=== PATIENT | male | born 1960 | race Caucasian/White ===

== ENCOUNTER 2017-09-22 06:59 | Inpatient (IN) | payer BC, OTHER ==
--- NOTE | 2017-09-22 06:42 | PCM.PREANE ---
Preanesthetic Assessment - Anesthesia/Transfusion/Family Hx Anesthesia History: Prior Anesthesia Without Reaction Family History of Anesthesia Reaction: No Transfusion History: No Prior Transfusion(s) Intubation History: Unknown - Review of Systems General: No Symptoms Pulmonary: No Symptoms (History JD with refusal of use of CPAP) Cardiovascular: No Symptoms (HTN) Gastrointestinal: No Symptoms Neurological: No Symptoms (History of gout/History of malignant neoplasm of prostate 2009), Tingling (bilaterl feet at times) Other: Reports: None (history of kidney stones), Diabetes (AM blood sugar= 136 at 0732) - Physical Assessment NPO Status Date: 09/21/17 NPO Status Time: 21:00 Pulse: 76 O2 Sat by Pulse Oximetry: 94 Respiratory Rate: 16 Blood Pressure: 141/86 Temperature: 36.4 C Height: 1.88 m Weight: 119 kg ASA Class: 2 Mental Status: Alert & Oriented x3 Airway Class: Mallampati = 2 Dentition: Reports: Normal Dentition, Caries Thyro-Mental Finger Breadths: 3 Mouth Opening Finger Breadths: 3 ROM/Head Extension: Full Lungs: Clear to Auscultation, Normal Respiratory Effort Cardiovascular: Regular Rate, Regular Rhythm, No Murmurs - Lab Values: Laboratory Last Values MRSA (PCR) Negative 09/16/17 12:50 all labs reviewed and noted and within acceptable ranges to proceed with scheduled procedure. - Imaging/EKG Impressions: EKG: SR borderline low voltage extremity leads rate=85 CXR: Scarring in both lungs, focal nodular changes in the right midlung - Allergies Allergies/Adverse Reactions: Allergies Allergy/AdvReac Type Severity Reaction Status Date / Time Fkzrpke-Qry-Gvm Reductase AdvReac Muscle Verified 09/22/17 07:05 Inhibitor Aches - Anesthesia Plan Pre-Op Medication Ordered: None - Acknowledgements Anesthesia Type Planned: Spinal Pt an Appropriate Candidate for the Planned Anesthesia: Yes Alternatives and Risks of Anesthesia Discussed w Pt/Guardian: Yes Pt/Guardian Understands and Agrees with Anesthesia Plan: Yes PreAnesthesia Questionnaire HEENT History: Reports: Impaired Vision Cardiovascular History: Reports: High Cholesterol, Hypertension Respiratory History: Reports: Sleep Apnea Genitourinary History: Reports: Renal Calculus 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 Musculoskeletal History: Reports: Gout, Osteoarthritis Neurological History: Reports: None Psychiatric History: Reports: None Endocrine/Metabolic History: Reports: Diabetes, Type II Hematologic History: Reports: None Immunologic History: Reports: None Oncologic (Cancer) History: Reports: Prostate Dermatologic History: Reports: None - Past Surgical History Head Surgeries/Procedures: Reports: None HEENT Surgical History: Reports: Adenoidectomy, Tonsillectomy Cardiovascular Surgical History: Reports: None Respiratory Surgical History: Reports: None GI Surgical History: Reports: Bariatric Procedure, Colonoscopy Female Surgical History: Male Surgical History: Reports: Cystectomy, Lithotripsy (ESWL), Prostate Biopsy, Prostatectomy Endocrine Surgical History: Reports: None Neurological Surgical History: Reports: None Musculoskeletal Surgical History: Reports: Carpal Tunnel Oncologic Surgical History: Reports: None Dermatological Surgical History: Reports: None - SUBSTANCE USE Smoking Status *Q: Former Smoker Second Hand Smoke Exposure: No Recreational Drug Use History: No - HOME MEDS Home Medications: Home Meds Acetaminophen [Tylenol Extra Strength] 1 - 2 tab PO Q6H PRN 09/19/17 [History] Allopurinol [Zyloprim] 300 mg PO DAILY 09/19/17 [History] Aspirin [Adult Aspirin] 81 mg PO DAILY 09/19/17 [History] Lisinopril 20 mg PO DAILY 09/19/17 [History] Loratadine [Claritin] 10 mg PO DAILY PRN 09/19/17 [History] Multivit-Min/FA/Lycopen/Lutein [Centrum Silver Men Tablet] 1 tab PO DAILY [History] SitaGLIPtin [Januvia] 100 mg PO DAILY 09/19/17 [History] Tadalafil [Cialis] 5 mg PO ASDIRECTED PRN 09/19/17 [History] Terbinafine [LamISIL] 250 mg PO DAILY 09/19/17 [History] Zolpidem Tartrate [Ambien] 10 mg PO BEDTIME PRN 09/19/17 [History] amLODIPine Besylate [Amlodipine Besylate] 10 mg PO DAILY 09/19/17 [History] metFORMIN HCl [Metformin HCl] 2,000 mg PO BID 09/19/17 [History] - CURRENT (IN HOUSE) MEDS Current Meds: Current Medications Acetaminophen (Tylenol) 975 mg PO ONETIME JHONATHAN Lactated Ringer's (Ringers, Lactated) 1,000 mls @ 125 mls/hr IV ASDIRECTED JHONATHAN Lidocaine/Sodium Bicarbonate (Buffered Lidocaine 1% In Ns 8.4%) 0.25 ml IDERM ONETIME PRN PRN Reason: Prior to IV Start Oxycodone HCl (Oxycontin) 10 mg PO ONETIME JHONATHAN Pregabalin (Lyrica) 50 mg PO ONETIME JHONATHAN Sodium Chloride (Saline Flush) 10 ml FLUSH ASDIRECTED PRN PRN Reason: Keep Vein Open
[~2017-09-22 06:59] MED LIST: Acetaminophen 325 MG Tab PO SCH; Lidocaine 1%/Sod Bicarbonate in NS 8.4% 1 ML Syringe IDERM PRN; Pregabalin 25 MG Cap PO SCH; Sodium Chloride 0.9% 10 ML Syringe FLUSH PRN; oxyCODONE ER 10 MG TAB.ER PO SCH
[2017-09-22] MEDS ORDERED: Ondansetron 4 MG/2 ML SDV ONE (07:16)
[2017-09-22] MEDS ORDERED: ceFAZolin 1 GM Vial ONE ×2 (07:16→07:17)
[2017-09-22] MEDS ORDERED: Phenylephrine/Normal Saline 100 MCG/ML 10 ML Syringe ONE (07:16)
[2017-09-22] MEDS ORDERED: Lactated Ringers 1,000 ML ONE ×2 (07:16→08:36)
[2017-09-22] MEDS ORDERED: Vancomycin 1 GM SDV ONE (07:17)
[2017-09-22] MEDS ORDERED: Iodine/Sodium Iodide 2% Tincture 30 ML Bottle ONE (07:17)
[2017-09-22] MEDS ORDERED: Bupivacaine 0.25% 30 ML SDV ONE (07:17)
[2017-09-22] MEDS ORDERED: Propofol 200 MG/20 ML SDV ONE ×2 (07:17→09:52)
[2017-09-22] MEDS ORDERED: fentaNYL 100 MCG/2 ML SDV ONE (07:17)
[2017-09-22] MEDS ORDERED: Ketamine 500 mg/10 ML MDV ONE (07:18)
[2017-09-22] MEDS: Lactated Ringers 1,000 ML IV SCH ×2 (07:35→14:40)
[2017-09-22] MEDS ORDERED: Bupivacaine 0.75% 30 ML SDV ONE ×2 (08:11→09:01)
[2017-09-22] MEDS ORDERED: Bupivacaine 0.75%/D5W 2 ML Amp ONE (08:22)
[2017-09-22] MEDS ORDERED: Acetaminophen 325 MG Tab PO PRN (08:43)
[2017-09-22] MEDS ORDERED: TADALAFIL 5 MG PO PRN (08:43)
[2017-09-22] MEDS ORDERED: Ondansetron 4 MG/2 ML SDV IVPUSH PRN (08:54)
[2017-09-22] MEDS ORDERED: ePHEDrine 50 MG/ML SDV IVPUSH PRN (08:54)
[2017-09-22] MEDS ORDERED: diphenhydrAMINE 50 MG/ML SDV IVPUSH PRN (08:54)
[2017-09-22] MEDS ORDERED: fentaNYL 100 MCG/2 ML SDV IVPUSH PRN (08:54)
[2017-09-22] MEDS ORDERED: HYDROmorphone 0.5 MG/0.5 ML Syringe IVPUSH PRN (08:55)
[2017-09-22] MEDS ORDERED: Non-Formulary Medication 1 Each (Sitagliptin 100 MG) PO SCH (09:00)
[2017-09-22] MEDS ORDERED: Phenylephrine 1 MG in Sodium Chloride 0.9% 10 ML IV SCH (09:00)
[2017-09-22] MEDS ORDERED: HYDROmorphone 0.5 MG/0.5 ML Syringe ONE ×3 (09:57→10:26)
--- NOTE | 2017-09-22 09:59 | PCM.CONS ---
H&P History of Present Illness - General Date of Service: 09/22/17 Admit Problem/Dx: Admission Diagnosis/Problem Admission Diagnosis/Problem Osteoarthritis of hip Source of Information: Patient, Old Records, Provider, RN, RN Notes Reviewed History Limitations: Reports: No Limitations - History of Present Illness Initial Comments - Free Text/Narative: Jac Bhatt is a 56 yo male patient of Dr. Darnell who is post-operative day 0 of right MEGAN. Hospital medicine was consulted for post-operative medical care. At this time he is resting comfortably in bed. He reports he is very sleepy and fatigued. Pain is controlled and 0/10. He denies any chest pain, shortness of breath, palpitations, or vomiting. He has been very mildly nauseated but it is improving. He carries a history of: JD but refueses CPAP, HTN, HLD, Gout, Prostate cancer, Renal Calculus, Osteoarthritis, Type II DM, and a history of lap band procedure. He is a former smoker. He is a full code. His primary care provider is Dr. Ac. - Related Data Allergies/Adverse Reactions: Allergies Allergy/AdvReac Type Severity Reaction Status Date / Time Pykvciv-Teo-Srp Reductase AdvReac Muscle Verified 09/22/17 07:05 Inhibitor Aches Home Medications: Home Meds Allopurinol [Zyloprim] 300 mg PO DAILY 09/19/17 [History] Aspirin [Adult Aspirin] 81 mg PO DAILY 09/19/17 [History] Lisinopril 20 mg PO DAILY 09/19/17 [History] Loratadine [Claritin] 10 mg PO DAILY PRN 09/19/17 [History] Multivit-Min/FA/Lycopen/Lutein [Centrum Silver Men Tablet] 1 tab PO DAILY [History] Tadalafil [Cialis] 5 mg PO ASDIRECTED PRN 09/19/17 [History] Terbinafine [LamISIL] 250 mg PO DAILY 09/19/17 [History] Zolpidem Tartrate [Ambien] 10 mg PO BEDTIME PRN 09/19/17 [History] amLODIPine Besylate [Amlodipine Besylate] 10 mg PO DAILY 09/19/17 [History] metFORMIN HCl [Metformin HCl] 2,000 mg PO BID 09/19/17 [History] Acetaminophen [Tylenol Extra Strength] 1 - 2 tab PO Q6H PRN #0 09/22/17 [Rx] Acetaminophen/oxyCODONE [Percocet 325-5 MG] 1 - 2 tab PO Q6H PRN #60 tablet 05/11 [Rx] Bisacodyl [Dulcolax] 5 mg PO DAILY PRN tablet 09/22/17 [Rx] Docusate Sodium [Colace] 100 mg PO BID cap 09/22/17 [Rx] Famotidine [Pepcid] 20 mg PO Q12H tablet 09/22/17 [Rx] Magnesium Hydroxide [Milk of Magnesia] 30 ml PO BID PRN cup 09/22/17 [Rx] Rivaroxaban [Xarelto] 10 mg PO DAILY #40 tablet 09/22/17 [Rx] Sennosides [Senna] 8.6 mg PO BID PRN tablet 09/22/17 [Rx] Past Medical History HEENT History: Reports: Impaired Vision Cardiovascular History: Reports: High Cholesterol, Hypertension Respiratory History: Reports: Sleep Apnea Genitourinary History: Reports: Renal Calculus 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 Musculoskeletal History: Reports: Gout, Osteoarthritis Neurological History: Reports: None Psychiatric History: Reports: None Endocrine/Metabolic History: Reports: Diabetes, Type II Hematologic History: Reports: None Immunologic History: Reports: None Oncologic (Cancer) History: Reports: Prostate Dermatologic History: Reports: None - Past Surgical History Head Surgeries/Procedures: Reports: None HEENT Surgical History: Reports: Adenoidectomy, Tonsillectomy Cardiovascular Surgical History: Reports: None Respiratory Surgical History: Reports: None GI Surgical History: Reports: Bariatric Procedure, Colonoscopy Female Surgical History: Male Surgical History: Reports: Cystectomy, Lithotripsy (ESWL), Prostate Biopsy, Prostatectomy Endocrine Surgical History: Reports: None Neurological Surgical History: Reports: None Musculoskeletal Surgical History: Reports: Carpal Tunnel Oncologic Surgical History: Reports: None Dermatological Surgical History: Reports: None Social & Family History - Tobacco Use Smoking Status *Q: Former Smoker Used Tobacco, but Quit: Yes Month/Year Tobacco Last Used: 1983 Second Hand Smoke Exposure: No - Caffeine Use Caffeine Use: Reports: Soda - Recreational Drug Use Recreational Drug Use: No H&P Review of Systems - Review of Systems: Review Of Systems: See Below General: Reports: Fatigue. Denies: Fever, Chills, Malaise, Weakness HEENT: Reports: No Symptoms Pulmonary: Reports: No Symptoms Cardiovascular: Reports: No Symptoms Gastrointestinal: Reports: Nausea (improving to resolved ). Denies: Abdominal Pain, Constipation, Diarrhea, Decreased Appetite, Vomiting Genitourinary: Reports: No Symptoms Musculoskeletal: Reports: Leg Pain Skin: Reports: No Symptoms Psychiatric: Reports: No Symptoms Neurological: Reports: No Symptoms Hematologic/Lymphatic: Reports: No Symptoms Immunologic: Reports: No Symptoms Exam - Exam Exam: See Below - Vital Signs Vital Signs: Last Vital Signs Temp 97.5 F 09/22/17 07:47 Pulse 76 09/22/17 07:47 Resp 16 09/22/17 07:47 BP 141/86 H 09/22/17 07:47 Pulse Ox 94 L 09/22/17 07:47 Weight: 262 lb 5.601 oz - Exam Quality Assessment: Urinary Catheter, DVT Prophylaxis General: Alert, Oriented, Cooperative. No: Mild Distress HEENT: Conjunctiva Clear, EACs Clear, EOMI, Hearing Intact, Mucosa Moist & Andres , Normal Nasal Septum, PERRLA Neck: Supple, Trachea Midline Lungs: Clear to Auscultation, Normal Respiratory Effort Cardiovascular: Regular Rate, Regular Rhythm GI/Abdominal Exam: Normal Bowel Sounds, Soft, Non-Tender, No Distention (Male) Exam: Deferred Rectal (Males) Exam: Deferred Back Exam: Normal Inspection, Full Range of Motion Extremities: No Pedal Edema, Normal Capillary Refill, Leg Pain, Limited Range of Motion, Other (GWEN bandage on right leg. Cooling pack in place ) Peripheral Pulses: 2+: Radial (L), Radial (R), Posterior Tibial (L), Posterior Tibial (R), Dorsalis Pedis (L), Dorsalis Pedis (R) Skin: Warm, Dry, Intact Neurological: Cranial Nerves Intact (grossly ) Neuro Extensive - Mental Status: Alert, Oriented x3, Normal Mood/Affect, Normal Cognition, Memory Intact Psychiatric: Alert, Normal Affect, Normal Mood - Patient Data Lab Results Last 24 hrs: Laboratory Results - last 24 hr 09/22/17 09/22/17 Range/Units 07:30 07:33 POC Glucose 136 H (70-105) mg/dL Blood Type O POSITIVE Gel Antibody Screen Negative Consult PN Assessment/Plan POD#: 0 (1) S/P total hip arthroplasty SNOMED Code(s): 669671915473, 863712302412 Code(s): Z96.649 - PRESENCE OF UNSPECIFIED ARTIFICIAL HIP JOINT Priority: High Current Visit: Yes Qualifiers: Laterality: right Qualified Code(s): Z96.641 - Presence of right artificial hip joint (2) Osteoarthritis SNOMED Code(s): 866257051 Code(s): M19.90 - UNSPECIFIED OSTEOARTHRITIS, UNSPECIFIED SITE Priority: High Current Visit: Yes Qualifiers: Osteoarthritis location: hip Osteoarthritis type: primary Laterality: right Qualified Code(s): M16.11 - Unilateral primary osteoarthritis, right hip (3) Type II diabetes mellitus SNOMED Code(s): 61833760 Code(s): E11.9 - TYPE 2 DIABETES MELLITUS WITHOUT COMPLICATIONS Priority: Medium Current Visit: Yes Qualifiers: 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: without halfway use Diabetes mellitus complication status: with unspecified complications Qualified Code(s) : E11.8 - Type 2 diabetes mellitus with unspecified complications (4) HTN (hypertension) SNOMED Code(s): 23364506 Code(s): I10 - ESSENTIAL (PRIMARY) HYPERTENSION Priority: Medium Current Visit: No Qualifiers: Hypertension type: unspecified Qualified Code(s): I10 - Essential (primary ) hypertension (5) HLD (hyperlipidemia) SNOMED Code(s): 31506315 Code(s): E78.5 - HYPERLIPIDEMIA, UNSPECIFIED Priority: Medium Current Visit: No Qualifiers: Hyperlipidemia type: unspecified Qualified Code(s): E78.5 - Hyperlipidemia , unspecified (6) Prostate cancer SNOMED Code(s): 639006890 Code(s): C61 - MALIGNANT NEOPLASM OF PROSTATE Priority: Medium Current Visit: No (7) History of bariatric surgery SNOMED Code(s): 221770784, 628120237 Code(s): Z98.84 - BARIATRIC SURGERY STATUS Priority: Medium Current Visit : No Problem List Initiated/Reviewed/Updated: Yes Plan: I/P: Acute: S/P right total hip arthroplasty - post-operative day 0 -DVT prophylaxis and pain management per primary care team -PT/OT -IS/RT -Monitor oxygen saturation -Titrate oxygen as needed -Vital signs stable -Monitor labs -Pre-operative Hgb was 14.3 -Pre-operative eGFR was >90 -A1C was 6.4 Osteoarthritis of right hip -Pain management per primary care team Chronic: JD but refueses CPAP HTN HLD Hx/o Gout Prostate cancer Renal Calculus Type II DM -QID AC and bedtime glucose checks, SS insulin if needed History of lap band procedure Plan: CM for discharge planning GI prophylaxis Home medications as indicated Other orders as listed above Routine AM labs He is a full code. His PCP is Dr. Ac Thank you for allowing us to participate in the care of this patient!! Requesting Provider: Dr. Darnell Date Consult Requested: 09/22/17 Reason for Consult: Post-operative medical care Patient History Reviewed: Yes Admission H&P Reviewed: Yes Time Spent (in minutes): 40
[2017-09-22] MEDS ORDERED: Naloxone 0.4 MG/ML SDV IVPUSH PRN (10:00)
[2017-09-22] MEDS ORDERED: Acetaminophen/oxyCODONE 325-5 MG Tab PO PRN (10:00)
[2017-09-22] MEDS ORDERED: Magnesium Hydroxide 400 MG/5 ML Susp 30 ML Cup PO PRN (10:00)
[2017-09-22] MEDS ORDERED: Morphine 2 MG/ML Syringe IVPUSH PRN (10:00)
[2017-09-22] MEDS ORDERED: Sennosides 8.6 MG Tab PO PRN (10:00)
[2017-09-22] MEDS ORDERED: Bisacodyl 5 MG Tab PO PRN (10:00)
[2017-09-22] MEDS: Morphine 8 MG, EPINEPHrine 0.3 MG, Cefuroxime 750 MG, Ketorolac 30 MG, Sodium Chloride ... ONE ×10 (10:18→21:36)
[2017-09-22] MEDS ORDERED: Ketorolac 30 MG/ML SDV ONE (10:22)
--- NOTE | 2017-09-22 10:50 | PCM.POSTAN ---
POST ANESTHESIA ASSESSMENT - MENTAL STATUS Mental Status: Alert - VITAL SIGNS Pulse Rate: 60 SaO2: 94 Resp Rate: 10 Blood Pressure: 103/68 Temperature: 36.6 C - RESPIRATORY Respiratory Status: Respiratory Rate WNL, Airway Patent, O2 Saturation Stable, Supplemental Oxygen - CARDIOVASCULAR CV Status: Pulse Rate WNL, Blood Pressure Stable - GASTROINTESTINAL GI Status: No Symptoms - POST OP HYDRATION Hydration Status: Adequate & Stable
--- NOTE | 2017-09-22 11:39 | CR ---
Pelvis and right hip: AP view of the pelvis was obtained as well as lateral view of the right hip. Recently placed right hip prosthesis is seen. Components are aligned. Small amount of soft tissue air is noted around the right hip. Joint space with the left hip is preserved. Sacroiliac joints are within normal limits. Impression: 1. Satisfactory radiographic appearance of recently placed right hip prosthesis. Diagnostic code #2
[2017-09-22] MEDS: Multivitamins,Therapeutic Tab PO SCH (12:47)
[2017-09-22] MEDS: Lisinopril 20 MG Tab PO SCH (12:47)
[2017-09-22] MEDS: TERBINAFINE 250 MG PO SCH (12:48)
[2017-09-22] MEDS: Ondansetron 4 MG/2 ML SDV IVPUSH PRN ×2 (13:03→20:29)
[2017-09-22] MEDS ORDERED: 50% Dextrose in Water 50 ML Syringe IVPUSH PRN (13:24)
[2017-09-22] MEDS: metFORMIN 500 MG Tab PO SCH (16:59)
[2017-09-22] MEDS: ceFAZolin 2 GM in Premix Bag 1 BAG IV SCH (16:59)
[2017-09-22] MEDS: Insulin Aspart 100 Units/ML 3 ML Pen SUBCUT SCH ×2 (17:09→22:08)
[2017-09-22] MEDS ORDERED: Zolpidem 10 MG Tab PO PRN (21:00)
[2017-09-22] MEDS: Docusate Sodium 100 MG Cap PO SCH (21:25)
[2017-09-22] MEDS: Famotidine 20 MG Tab PO SCH (21:25)
[2017-09-22] MEDS: Cyclobenzaprine 10 MG Tab PO PRN (21:26)
[2017-09-22] MEDS: Ketorolac 15 MG/ML SDV IVPUSH PRN (21:31)
[2017-09-23] MEDS: ceFAZolin 2 GM in Premix Bag 1 BAG IV SCH ×2 (00:33→08:55)
[2017-09-23] MEDS: Ketorolac 15 MG/ML SDV IVPUSH PRN (04:14)
[2017-09-23] MEDS: Cyclobenzaprine 10 MG Tab PO PRN ×2 (04:18→11:25)
--- NOTE | 2017-09-23 06:33 | PCM.CONSN ---
- General Info Date of Service: 09/23/17 Admission Dx/Problem (Free Text): Admission Diagnosis/Problem Admission Diagnosis/Problem Osteoarthritis of hip Subjective Update: In to see Jcarlos. He is sitting up in the chair and nursing is in his room. He has no complaints or concerns. He reports he has not needed anything for pain since yesterday. Pain is controlled. Functional Status: Reports: Pain Controlled, Tolerating Diet, Ambulating, Urinating, Incentive Spirometry. Denies: New Symptoms - Review of Systems General: Reports: No Symptoms HEENT: Reports: No Symptoms Pulmonary: Reports: No Symptoms Cardiovascular: Reports: No Symptoms Gastrointestinal: Reports: No Symptoms Genitourinary: Reports: No Symptoms Musculoskeletal: Reports: Leg Pain Skin: Reports: No Symptoms Neurological: Reports: No Symptoms Psychiatric: Reports: No Symptoms - Patient Data Vitals - Most Recent: Last Vital Signs Temp 99.1 F 09/23/17 04:09 Pulse 88 09/23/17 04:09 Resp 16 09/23/17 04:09 BP 135/78 09/23/17 04:09 Pulse Ox 94 L 09/23/17 04:09 Weight - Most Recent: 271 lb 2 oz I&O - Last 24 Hours: Intake & Output 09/22/17 09/22/17 09/23/17 14:59 22:59 06:59 Intake Total 100 1432 1450 Output Total 50 750 Balance 100 1382 700 Lab Results Last 24 Hours: Laboratory Results - last 24 hr 09/22/17 09/22/17 09/22/17 Range/Units 07:30 07:33 10:54 Hgb (13.7-17.5) gm/L Hct (40.1-51.0) % POC Glucose 136 H 141 H (70-105) mg/dL Blood Type O POSITIVE Gel Antibody Screen Negative 09/22/17 09/22/17 09/22/17 Range/Units 15:25 16:57 21:59 Hgb 13.1 L (13.7-17.5) gm/L Hct 39.3 L (40.1-51.0) % POC Glucose 252 H 225 H (70-105) mg/dL Blood Type Gel Antibody Screen Med Orders - Current: Current Medications Acetaminophen (Tylenol) 650 - 975 mg PO Q6H PRN PRN Reason: Pain Allopurinol (Zyloprim) 300 mg PO DAILY [facility] Amlodipine Besylate (Norvasc) 10 mg PO DAILY [facility] Aspirin (Halfprin) 81 mg PO DAILY [facility] Bisacodyl (Dulcolax) 5 mg PO DAILY PRN PRN Reason: Constipation Cyclobenzaprine HCl (Flexeril) 10 mg PO TID PRN PRN Reason: Spasms Last Admin: 09/23/17 04:18 Dose: 10 mg Dextrose/Water (Dextrose 50% In Water) 50 ml IVPUSH ASDIRECTED PRN PRN Reason: Hypoglycemia Docusate Sodium (Colace) 100 mg PO BID [facility] Last Admin: 09/22/17 21:25 Dose: 100 mg Famotidine (Pepcid) 20 mg PO Q12H [facility] Last Admin: 09/22/17 21:25 Dose: 20 mg Cefazolin Sodium/Dextrose 2 gm (/ Premix) 50 mls @ 100 mls/hr IV Q8H [facility] Stop: 09/23/17 09:29 Last Admin: 09/23/17 00:33 Dose: 100 mls/hr Insulin Aspart (Novolog) 0 unit SUBCUT QIDACANDBED [facility]; Protocol Last Admin: 09/22/17 22:08 Dose: 2 units Ketorolac Tromethamine (Toradol) 15 mg IVPUSH Q6H PRN PRN Reason: Pain Last Admin: 09/23/17 04:14 Dose: 15 mg Lisinopril (Prinivil) 20 mg PO DAILY [facility] Last Admin: 09/22/17 12:47 Dose: 20 mg Loratadine (Claritin) 10 mg PO DAILY PRN PRN Reason: Allergies Magnesium Hydroxide (Milk Of Magnesia) 30 ml PO BID PRN PRN Reason: Constipation Metformin HCl (Glucophage) 2,000 mg PO BIDMEALS [facility] Last Admin: 09/22/17 16:59 Dose: Not Given Morphine Sulfate (Morphine) 2 mg IVPUSH Q2H PRN PRN Reason: Breakthrough Pain Multivitamins (Thera) 1 each PO DAILY [facility] Last Admin: 09/22/17 12:47 Dose: 1 each Naloxone HCl (Narcan) 0.1 mg IVPUSH Q5M PRN PRN Reason: Oversedation Ondansetron HCl (Zofran) 4 mg IVPUSH Q6H PRN PRN Reason: Nausea/Vomiting Last Admin: 09/22/17 20:29 Dose: 4 mg Oxycodone/Acetaminophen (Percocet 325-5 Mg) 1 - 2 tab PO Q4H PRN PRN Reason: Pain Last Admin: 09/22/17 17:10 Dose: 2 tab Terbinafine 250 Mg 0 each PO DAILY [facility] Last Admin: 09/22/17 12:48 Dose: Not Given Rivaroxaban (Xarelto) 10 mg PO DAILY [facility] Senna (Senna) 8.6 mg PO BID PRN PRN Reason: Constipation Zolpidem Tartrate (Ambien) 10 mg PO BEDTIME PRN PRN Reason: Insomnia Discontinued Medications Acetaminophen (Tylenol) 975 mg PO ONETIME [facility] Stop: 09/22/17 12:00 Bupivacaine HCl (Marcaine 0.25%) Confirm Administered Dose 30 ml .ROUTE .STK- MED ONE Stop: 09/22/17 07:18 Last Admin: 09/22/17 10:19 Dose: 30 ml Bupivacaine HCl (Sensorcaine-Mpf 0.75%) Confirm Administered Dose 30 ml .ROUTE .STK-MED ONE Stop: 09/22/17 08:12 Bupivacaine HCl (Sensorcaine-Mpf 0.75%) Confirm Administered Dose 30 ml .ROUTE .STK-MED ONE Stop: 09/22/17 09:02 Bupivacaine HCl/Dextrose (Marcaine 0.75% Spinal) Confirm Administered Dose 2 ml .ROUTE .STK-MED ONE Stop: 09/22/17 08:23 Cefazolin Sodium (Ancef) Confirm Administered Dose 3 gm .ROUTE .STK-MED ONE Stop: 09/22/17 07:17 Cefazolin Sodium (Ancef) Confirm Administered Dose 2 gm .ROUTE .STK-MED ONE Stop: 09/22/17 07:18 Last Admin: 09/22/17 10:13 Dose: 2 gm Morphine Sulfate 8 mg/Epinephrine HCl 0.3 mg/Cefuroxime Sodium 750 mg/Ketorolac Tromethamine 30 mg/Sodium Chloride 27.9 ml 0 mg .XX ONETIME ONE Stop: 09/22/17 09:01 Last Admin: 09/22/17 21:36 Dose: Not Given Diphenhydramine HCl (Benadryl) 25 mg IVPUSH Q6H PRN PRN Reason: pruritis Stop: 09/22/17 12:00 Ephedrine Sulfate (Ephedrine Sulfate) 5 mg IVPUSH ASDIRECTED PRN PRN Reason: Hypotension Stop: 09/22/17 12:00 Fentanyl (Sublimaze) Confirm Administered Dose 100 mcg .ROUTE .STK-MED ONE Stop: 09/22/17 07:18 Fentanyl (Sublimaze) 50 mcg IVPUSH Q5M PRN PRN Reason: Pain Stop: 09/22/17 12:00 Hydromorphone HCl (Dilaudid) 0.5 mg IVPUSH ONETIME PRN PRN Reason: Pain Stop: 09/22/17 12:00 Hydromorphone HCl (Dilaudid) Confirm Administered Dose 0.5 mg .ROUTE .STK-MED ONE Stop: 09/22/17 09:58 Hydromorphone HCl (Dilaudid) Confirm Administered Dose 0.5 mg .ROUTE .STK-MED ONE Stop: 09/22/17 10:13 Hydromorphone HCl (Dilaudid) Confirm Administered Dose 0.5 mg .ROUTE .STK-MED ONE Stop: 09/22/17 10:27 Lactated Ringer's (Ringers, Lactated) 1,000 mls @ 125 mls/hr IV ASDIRECTED [facility] Stop: 09/22/17 23:00 Last Admin: 09/22/17 14:40 Dose: 125 mls/hr Lidocaine HCl (Xylocaine-Mpf 1%) Confirm Administered Dose 10 mls @ as directed .ROUTE .STK-MED ONE Stop: 09/22/17 07:17 Lactated Ringer's (Ringers, Lactated) Confirm Administered Dose 1,000 mls @ as directed .ROUTE .STK-MED ONE Stop: 09/22/17 07:17 Lactated Ringer's (Ringers, Lactated) Confirm Administered Dose 1,000 mls @ as directed .ROUTE .STK-MED ONE Stop: 09/22/17 08:37 Phenylephrine HCl 1 mg/ Sodium (Chloride) 10.1 mls @ 1 mls/sec IV TITRATE [facility]; Protocol Stop: 09/22/17 12:00 Iodine (Iodine 2% Mild Tincture) Confirm Administered Dose 30 ml .ROUTE .STK- MED ONE Stop: 09/22/17 07:18 Last Admin: 09/22/17 10:11 Dose: 18 ml Ketamine HCl (Ketalar) Confirm Administered Dose 500 mg .ROUTE .STK-MED ONE Stop: 09/22/17 07:19 Ketorolac Tromethamine (Toradol) Confirm Administered Dose 30 mg .ROUTE .STK- MED ONE Stop: 09/22/17 10:23 Lidocaine/Sodium Bicarbonate (Buffered Lidocaine 1% In Ns 8.4%) 0.25 ml IDERM ONETIME PRN PRN Reason: Prior to IV Start Stop: 09/22/17 18:00 Last Admin: 09/22/17 07:29 Dose: 0.25 ml Non-Formulary Medication (Sitagliptin) 100 mg PO DAILY [facility] Last Admin: 09/22/17 21:37 Dose: Not Given Non-Formulary Medication (Tadalafil [Cialis]) 5 mg PO ASDIRECTED PRN PRN Reason: as directed Ondansetron HCl (Zofran) Confirm Administered Dose 4 mg .ROUTE .STK-MED ONE Stop: 09/22/17 07:17 Ondansetron HCl (Zofran) 4 mg IVPUSH ONETIME PRN PRN Reason: Nausea/Vomiting Stop: 09/22/17 12:00 Oxycodone HCl (Oxycontin) 10 mg PO ONETIME [facility] Stop: 09/22/17 12:00 Phenylephrine HCl (Phenylephrine In Ns 100 Mcg/Ml) Confirm Administered Dose 1 mg .ROUTE .STK-MED ONE Stop: 09/22/17 07:17 Pregabalin (Lyrica) 50 mg PO ONETIME [facility] Stop: 09/22/17 12:00 Propofol (Diprivan 20 Ml) Confirm Administered Dose 400 mg .ROUTE .STK-MED ONE Stop: 09/22/17 07:18 Propofol (Diprivan 20 Ml) Confirm Administered Dose 200 mg .ROUTE .STK-MED ONE Stop: 09/22/17 09:53 Sodium Chloride (Saline Flush) 10 ml FLUSH ASDIRECTED PRN PRN Reason: Keep Vein Open Stop: 09/22/17 18:00 Tranexamic Acid (Cyklokapron) Confirm Administered Dose 1,000 mg .ROUTE .STK- MED ONE Stop: 09/22/17 07:18 Last Admin: 09/22/17 10:20 Dose: 1,000 mg Vancomycin HCl (Vancomycin) Confirm Administered Dose 1 gm .ROUTE .STK-MED ONE Stop: 09/22/17 07:18 Last Admin: 09/22/17 10:20 Dose: 1 gm - Exam Quality Assessment: DVT Prophylaxis General: Alert, Oriented, Cooperative, No Acute Distress HEENT: Pupils Equal, Pupils Reactive, EOMI, Mucous Membr. Moist/[place] Neck: Supple, Trachea Midline, No JVD Lungs: Clear to Auscultation, Normal Respiratory Effort Cardiovascular: Regular Rate, Regular Rhythm GI/Abdominal Exam: Normal Bowel Sounds, Soft, Non-Tender, No Distention (Male) Exam: Deferred Back Exam: Normal Inspection, Full Range of Motion Extremities: No Pedal Edema, Normal Capillary Refill, Leg Pain, Limited Range of Motion, Other (GWEN bandage on right leg. Cooling pack in place. ) Peripheral Pulses: 2+: Radial (L), Radial (R), Posterior Tibial (L), Posterior Tibial (R), Dorsalis Pedis (L), Dorsalis Pedis (R) Skin: Warm, Dry, Intact Wound/Incisions: Dressing Dry and Intact, No Drainage Neurological: No New Focal Deficit Psy/Mental Status: Alert, Normal Affect, Normal Mood Consult PN Assessment/Plan POD#: 1 (1) S/P total hip arthroplasty SNOMED Code(s): 008146850312, 720153733657 Code(s): Z96.649 - PRESENCE OF UNSPECIFIED ARTIFICIAL HIP JOINT Priority: High Current Visit: Yes Qualifiers: Laterality: right Qualified Code(s): Z96.641 - Presence of right artificial hip joint (2) Osteoarthritis SNOMED Code(s): 908341083 Code(s): M19.90 - UNSPECIFIED OSTEOARTHRITIS, UNSPECIFIED SITE Priority: High Current Visit: Yes Qualifiers: Osteoarthritis location: hip Osteoarthritis type: primary Laterality: right Qualified Code(s): M16.11 - Unilateral primary osteoarthritis, right hip (3) Type II diabetes mellitus SNOMED Code(s): 36063978 Code(s): E11.9 - TYPE 2 DIABETES MELLITUS WITHOUT COMPLICATIONS Priority: Medium Current Visit: Yes Qualifiers: Diabetes mellitus manager intermediate insulin use: without retirement use Diabetes mellitus complication status: with unspecified complications Qualified Code(s) : E11.8 - Type 2 diabetes mellitus with unspecified complications (4) HTN (hypertension) SNOMED Code(s): 29070004 Code(s): I10 - ESSENTIAL (PRIMARY) HYPERTENSION Priority: Medium Current Visit: No Qualifiers: Hypertension type: unspecified Qualified Code(s): I10 - Essential (primary ) hypertension (5) HLD (hyperlipidemia) SNOMED Code(s): 27991957 Code(s): E78.5 - HYPERLIPIDEMIA, UNSPECIFIED Priority: Medium Current Visit: No Qualifiers: Hyperlipidemia type: unspecified Qualified Code(s): E78.5 - Hyperlipidemia , unspecified (6) Prostate cancer SNOMED Code(s): 881094428 Code(s): C61 - MALIGNANT NEOPLASM OF PROSTATE Priority: Medium Current Visit: No (7) History of bariatric surgery SNOMED Code(s): 830165748, 010410762 Code(s): Z98.84 - BARIATRIC SURGERY STATUS Priority: Medium Current Visit : No Problem List Initiated/Reviewed/Updated: Yes My Orders Last 24 Hours: My Active Orders 09/22/17 13:23 Accu Check [Blood Glucose Check, Bedside] [RC] QIDACANDBED 09/22/17 13:24 Dextrose 50% in Water 50 ml IVPUSH ASDIRECTED PRN 09/22/17 17:00 Insulin Aspart [NovoLOG] See Protocol SUBCUT QIDACANDBED Plan: I/P: Acute: S/P right total hip arthroplasty - post-operative day 1 -DVT prophylaxis and pain management per primary care team -PT/OT -IS/RT -Monitor oxygen saturation -Titrate oxygen as needed -Vital signs stable -Monitor labs -Pre-operative Hgb was 14.3; today 11.4 -Pre-operative eGFR was >90; today >60 -A1C was 6.4 Osteoarthritis of right hip -Pain management per primary care team Chronic: JD but refueses CPAP HTN HLD Hx/o Gout Prostate cancer Renal Calculus Type II DM -QID AC and bedtime glucose checks, SS insulin if needed History of lap band procedure Plan: CM for discharge planning GI prophylaxis Home medications as indicated Other orders as listed above Routine AM labs He is a full code. His PCP is Dr. Ac From a hospitalist standpoint Jcarlos is doing very well. He has been up with therapies. Pain is rated at 2/10 and controlled. He did report some nausea after his percocet yesterday and this will be addressed by nursing with the primary care team. He is having no nausea now. No concerns nursing. Vitals and labs look good. He has urinated. He is clear for discharge pending primary team approval. Thank you for allowing us to participate in the care of this patient!!
[2017-09-23] MEDS: metFORMIN 500 MG Tab PO SCH (06:36)
[2017-09-23] MEDS: Insulin Aspart 100 Units/ML 3 ML Pen SUBCUT SCH ×2 (06:37→12:43)
--- NOTE | 2017-09-23 08:06 | PCM.SURGPN ---
- General Info Date of Service: 09/23/17 POD#: 1 Functional Status: Reports: Pain Controlled, Tolerating Diet, Ambulating, Urinating, Incentive Spirometry - Review of Systems Musculoskeletal: Reports: Other (The pt states he is suprised at the lack of pain he has had since surgery.) - Patient Data Vitals - Most Recent: Last Vital Signs Temp 99.1 F 09/23/17 04:09 Pulse 88 09/23/17 04:09 Resp 16 09/23/17 04:09 BP 135/78 09/23/17 04:09 Pulse Ox 94 L 09/23/17 04:09 Weight - Most Recent: 271 lb 2 oz I&O - Last 24 Hours: Intake & Output 09/22/17 09/23/17 09/23/17 22:59 06:59 14:59 Intake Total 1432 1450 Output Total 50 750 Balance 1382 700 Lab Results Last 24 Hrs: Laboratory Results - last 24 hr 09/22/17 09/22/17 09/22/17 Range/Units 07:30 10:54 15:25 WBC (4.23-9.07) K/mm3 RBC (4.63-6.08) M/mm3 Hgb 13.1 L (13.7-17.5) gm/L Hct 39.3 L (40.1-51.0) % MCV (79.0-92.2) fl MCH (25.7-32.2) pg MCHC (32.2-35.5) g/dl RDW Std Deviation (35.1-43.9) fL Plt Count (163-337) K/mm3 MPV (9.4-12.3) fl Sodium (136-145) mEq/L Potassium (3.5-5.1) mEq/L Chloride (98-107) mEq/L Carbon Dioxide (21-32) mEq/L Anion Gap (5-15) BUN (7-18) mg/dL Creatinine (0.7-1.3) mg/dL Est Cr Clr Drug Dosing mL/min Estimated GFR (MDRD) (>60) mL/min BUN/Creatinine Ratio (14-18) Glucose (74-106) mg/dL POC Glucose 141 H (70-105) mg/dL Calcium (8.5-10.1) mg/dL Total Bilirubin (0.2-1.0) mg/dL AST (15-37) U/L ALT (16-63) U/L Alkaline Phosphatase (46-116) U/L Total Protein (6.4-8.2) g/dl Albumin (3.4-5.0) g/dl Globulin gm/dL Albumin/Globulin Ratio (1-2) Blood Type O POSITIVE Gel Antibody Screen Negative 09/22/17 09/22/17 09/23/17 Range/Units 16:57 21:59 06:35 WBC (4.23-9.07) K/mm3 RBC (4.63-6.08) M/mm3 Hgb (13.7-17.5) gm/L Hct (40.1-51.0) % MCV (79.0-92.2) fl MCH (25.7-32.2) pg MCHC (32.2-35.5) g/dl RDW Std Deviation (35.1-43.9) fL Plt Count (163-337) K/mm3 MPV (9.4-12.3) fl Sodium (136-145) mEq/L Potassium (3.5-5.1) mEq/L Chloride (98-107) mEq/L Carbon Dioxide (21-32) mEq/L Anion Gap (5-15) BUN (7-18) mg/dL Creatinine (0.7-1.3) mg/dL Est Cr Clr Drug Dosing mL/min Estimated GFR (MDRD) (>60) mL/min BUN/Creatinine Ratio (14-18) Glucose (74-106) mg/dL POC Glucose 252 H 225 H 123 H (70-105) mg/dL Calcium (8.5-10.1) mg/dL Total Bilirubin (0.2-1.0) mg/dL AST (15-37) U/L ALT (16-63) U/L Alkaline Phosphatase (46-116) U/L Total Protein (6.4-8.2) g/dl Albumin (3.4-5.0) g/dl Globulin gm/dL Albumin/Globulin Ratio (1-2) Blood Type Gel Antibody Screen 09/23/17 09/23/17 Range/Units 06:45 06:45 WBC 7.36 (4.23-9.07) K/mm3 RBC 3.89 L (4.63-6.08) M/mm3 Hgb 11.4 L (13.7-17.5) gm/L Hct 34.7 L (40.1-51.0) % MCV 89.2 (79.0-92.2) fl MCH 29.3 (25.7-32.2) pg MCHC 32.9 (32.2-35.5) g/dl RDW Std Deviation 43.1 (35.1-43.9) fL Plt Count 155 L (163-337) K/mm3 MPV 9.1 L (9.4-12.3) fl Sodium 140 (136-145) mEq/L Potassium 4.3 (3.5-5.1) mEq/L Chloride 107 (98-107) mEq/L Carbon Dioxide 28 (21-32) mEq/L Anion Gap 9.3 (5-15) BUN 26 H (7-18) mg/dL Creatinine 1.0 (0.7-1.3) mg/dL Est Cr Clr Drug Dosing 93.66 mL/min Estimated GFR (MDRD) > 60 (>60) mL/min BUN/Creatinine Ratio 26.0 H (14-18) Glucose 116 H (74-106) mg/dL POC Glucose (70-105) mg/dL Calcium 8.5 (8.5-10.1) mg/dL Total Bilirubin 0.5 (0.2-1.0) mg/dL AST 22 (15-37) U/L ALT 27 (16-63) U/L Alkaline Phosphatase 66 (46-116) U/L Total Protein 5.7 L (6.4-8.2) g/dl Albumin 2.9 L (3.4-5.0) g/dl Globulin 2.8 gm/dL Albumin/Globulin Ratio 1.0 (1-2) Blood Type Gel Antibody Screen Med Orders - Current: Current Medications Acetaminophen (Tylenol) 650 - 975 mg PO Q6H PRN PRN Reason: Pain Allopurinol (Zyloprim) 300 mg PO DAILY [facility] Amlodipine Besylate (Norvasc) 10 mg PO DAILY [facility] Aspirin (Halfprin) 81 mg PO DAILY [facility] Bisacodyl (Dulcolax) 5 mg PO DAILY PRN PRN Reason: Constipation Cyclobenzaprine HCl (Flexeril) 10 mg PO TID PRN PRN Reason: Spasms Last Admin: 09/23/17 04:18 Dose: 10 mg Dextrose/Water (Dextrose 50% In Water) 50 ml IVPUSH ASDIRECTED PRN PRN Reason: Hypoglycemia Docusate Sodium (Colace) 100 mg PO BID [facility] Last Admin: 09/22/17 21:25 Dose: 100 mg Famotidine (Pepcid) 20 mg PO Q12H [facility] Last Admin: 09/22/17 21:25 Dose: 20 mg Cefazolin Sodium/Dextrose 2 gm (/ Premix) 50 mls @ 100 mls/hr IV Q8H [facility] Stop: 09/23/17 09:29 Last Admin: 09/23/17 00:33 Dose: 100 mls/hr Insulin Aspart (Novolog) 0 unit SUBCUT QIDACANDBED [facility]; Protocol Last Admin: 09/23/17 06:37 Dose: Not Given Ketorolac Tromethamine (Toradol) 15 mg IVPUSH Q6H PRN PRN Reason: Pain Last Admin: 09/23/17 04:14 Dose: 15 mg Lisinopril (Prinivil) 20 mg PO DAILY [facility] Last Admin: 09/22/17 12:47 Dose: 20 mg Loratadine (Claritin) 10 mg PO DAILY PRN PRN Reason: Allergies Magnesium Hydroxide (Milk Of Magnesia) 30 ml PO BID PRN PRN Reason: Constipation Metformin HCl (Glucophage) 2,000 mg PO BIDMEALS [facility] Last Admin: 09/23/17 06:36 Dose: 2,000 mg Morphine Sulfate (Morphine) 2 mg IVPUSH Q2H PRN PRN Reason: Breakthrough Pain Multivitamins (Thera) 1 each PO DAILY [facility] Last Admin: 09/22/17 12:47 Dose: 1 each Naloxone HCl (Narcan) 0.1 mg IVPUSH Q5M PRN PRN Reason: Oversedation Ondansetron HCl (Zofran) 4 mg IVPUSH Q6H PRN PRN Reason: Nausea/Vomiting Last Admin: 09/22/17 20:29 Dose: 4 mg Oxycodone/Acetaminophen (Percocet 325-5 Mg) 1 - 2 tab PO Q4H PRN PRN Reason: Pain Last Admin: 09/22/17 17:10 Dose: 2 tab Terbinafine 250 Mg 0 each PO DAILY [facility] Last Admin: 09/22/17 12:48 Dose: Not Given Rivaroxaban (Xarelto) 10 mg PO DAILY [facility] Senna (Senna) 8.6 mg PO BID PRN PRN Reason: Constipation Zolpidem Tartrate (Ambien) 10 mg PO BEDTIME PRN PRN Reason: Insomnia Discontinued Medications Acetaminophen (Tylenol) 975 mg PO ONETIME [facility] Stop: 09/22/17 12:00 Bupivacaine HCl (Marcaine 0.25%) Confirm Administered Dose 30 ml .ROUTE .STK- MED ONE Stop: 09/22/17 07:18 Last Admin: 09/22/17 10:19 Dose: 30 ml Bupivacaine HCl (Sensorcaine-Mpf 0.75%) Confirm Administered Dose 30 ml .ROUTE .STK-MED ONE Stop: 09/22/17 08:12 Bupivacaine HCl (Sensorcaine-Mpf 0.75%) Confirm Administered Dose 30 ml .ROUTE .STK-MED ONE Stop: 09/22/17 09:02 Bupivacaine HCl/Dextrose (Marcaine 0.75% Spinal) Confirm Administered Dose 2 ml .ROUTE .STK-MED ONE Stop: 09/22/17 08:23 Cefazolin Sodium (Ancef) Confirm Administered Dose 3 gm .ROUTE .STK-MED ONE Stop: 09/22/17 07:17 Cefazolin Sodium (Ancef) Confirm Administered Dose 2 gm .ROUTE .STK-MED ONE Stop: 09/22/17 07:18 Last Admin: 09/22/17 10:13 Dose: 2 gm Morphine Sulfate 8 mg/Epinephrine HCl 0.3 mg/Cefuroxime Sodium 750 mg/Ketorolac Tromethamine 30 mg/Sodium Chloride 27.9 ml 0 mg .XX ONETIME ONE Stop: 09/22/17 09:01 Last Admin: 09/22/17 21:36 Dose: Not Given Diphenhydramine HCl (Benadryl) 25 mg IVPUSH Q6H PRN PRN Reason: pruritis Stop: 09/22/17 12:00 Ephedrine Sulfate (Ephedrine Sulfate) 5 mg IVPUSH ASDIRECTED PRN PRN Reason: Hypotension Stop: 09/22/17 12:00 Fentanyl (Sublimaze) Confirm Administered Dose 100 mcg .ROUTE .STK-MED ONE Stop: 09/22/17 07:18 Fentanyl (Sublimaze) 50 mcg IVPUSH Q5M PRN PRN Reason: Pain Stop: 09/22/17 12:00 Hydromorphone HCl (Dilaudid) 0.5 mg IVPUSH ONETIME PRN PRN Reason: Pain Stop: 09/22/17 12:00 Hydromorphone HCl (Dilaudid) Confirm Administered Dose 0.5 mg .ROUTE .STK-MED ONE Stop: 09/22/17 09:58 Hydromorphone HCl (Dilaudid) Confirm Administered Dose 0.5 mg .ROUTE .STK-MED ONE Stop: 09/22/17 10:13 Hydromorphone HCl (Dilaudid) Confirm Administered Dose 0.5 mg .ROUTE .STK-MED ONE Stop: 09/22/17 10:27 Lactated Ringer's (Ringers, Lactated) 1,000 mls @ 125 mls/hr IV ASDIRECTED [facility] Stop: 09/22/17 23:00 Last Admin: 09/22/17 14:40 Dose: 125 mls/hr Lidocaine HCl (Xylocaine-Mpf 1%) Confirm Administered Dose 10 mls @ as directed .ROUTE .STK-MED ONE Stop: 09/22/17 07:17 Lactated Ringer's (Ringers, Lactated) Confirm Administered Dose 1,000 mls @ as directed .ROUTE .STK-MED ONE Stop: 09/22/17 07:17 Lactated Ringer's (Ringers, Lactated) Confirm Administered Dose 1,000 mls @ as directed .ROUTE .STK-MED ONE Stop: 09/22/17 08:37 Phenylephrine HCl 1 mg/ Sodium (Chloride) 10.1 mls @ 1 mls/sec IV TITRATE [facility]; Protocol Stop: 09/22/17 12:00 Iodine (Iodine 2% Mild Tincture) Confirm Administered Dose 30 ml .ROUTE .STK- MED ONE Stop: 09/22/17 07:18 Last Admin: 09/22/17 10:11 Dose: 18 ml Ketamine HCl (Ketalar) Confirm Administered Dose 500 mg .ROUTE .STK-MED ONE Stop: 09/22/17 07:19 Ketorolac Tromethamine (Toradol) Confirm Administered Dose 30 mg .ROUTE .STK- MED ONE Stop: 09/22/17 10:23 Lidocaine/Sodium Bicarbonate (Buffered Lidocaine 1% In Ns 8.4%) 0.25 ml IDERM ONETIME PRN PRN Reason: Prior to IV Start Stop: 09/22/17 18:00 Last Admin: 09/22/17 07:29 Dose: 0.25 ml Non-Formulary Medication (Sitagliptin) 100 mg PO DAILY [facility] Last Admin: 09/22/17 21:37 Dose: Not Given Non-Formulary Medication (Tadalafil [Cialis]) 5 mg PO ASDIRECTED PRN PRN Reason: as directed Ondansetron HCl (Zofran) Confirm Administered Dose 4 mg .ROUTE .STK-MED ONE Stop: 09/22/17 07:17 Ondansetron HCl (Zofran) 4 mg IVPUSH ONETIME PRN PRN Reason: Nausea/Vomiting Stop: 09/22/17 12:00 Oxycodone HCl (Oxycontin) 10 mg PO ONETIME [facility] Stop: 09/22/17 12:00 Phenylephrine HCl (Phenylephrine In Ns 100 Mcg/Ml) Confirm Administered Dose 1 mg .ROUTE .STK-MED ONE Stop: 09/22/17 07:17 Pregabalin (Lyrica) 50 mg PO ONETIME [facility] Stop: 09/22/17 12:00 Propofol (Diprivan 20 Ml) Confirm Administered Dose 400 mg .ROUTE .STK-MED ONE Stop: 09/22/17 07:18 Propofol (Diprivan 20 Ml) Confirm Administered Dose 200 mg .ROUTE .STK-MED ONE Stop: 09/22/17 09:53 Sodium Chloride (Saline Flush) 10 ml FLUSH ASDIRECTED PRN PRN Reason: Keep Vein Open Stop: 09/22/17 18:00 Tranexamic Acid (Cyklokapron) Confirm Administered Dose 1,000 mg .ROUTE .STK- MED ONE Stop: 09/22/17 07:18 Last Admin: 09/22/17 10:20 Dose: 1,000 mg Vancomycin HCl (Vancomycin) Confirm Administered Dose 1 gm .ROUTE .STK-MED ONE Stop: 09/22/17 07:18 Last Admin: 09/22/17 10:20 Dose: 1 gm - Exam Wound/Incisions: Dressing Dry and Intact General: Alert, Cooperative, No Acute Distress Lungs: Normal Respiratory Effort Extremities: Other (NVS intact for RLE. Eligio's negative. Right thigh soft, nontender.) - Problem List Review Problem List Initiated/Reviewed/Updated: Yes - My Orders Last 24 Hours: Active Orders 24 hr Category Date Time Status Accu Check [Blood Glucose Check, Bedside] [] Care 09/22/17 13:23 Active QIDACANDBED Notify Provider [] ASDIRECTED Care 09/22/17 08:53 Active Pulse Oximetry [] ASDIRECTED Care 09/22/17 08:52 Active Regular Diet [DIET] Diet 09/22/17 Lunch Active Acetaminophen [Tylenol] Med 09/22/17 08:43 Active 650 - 975 mg PO Q6H PRN Acetaminophen/oxyCODONE [Percocet 325-5 MG] Med 09/22/17 10:00 Active 1 - 2 tab PO Q4H PRN Allopurinol [Zyloprim] Med 09/23/17 09:00 Active 300 mg PO DAILY Aspirin [Halfprin] Med 09/23/17 09:00 Active 81 mg PO DAILY Bisacodyl [Dulcolax] Med 09/22/17 10:00 Active 5 mg PO DAILY PRN Cyclobenzaprine [Flexeril] Med 09/22/17 10:00 Active 10 mg PO TID PRN Dextrose 50% in Water Med 09/22/17 13:24 Active 50 ml IVPUSH ASDIRECTED PRN Docusate Sodium [Colace] Med 09/22/17 21:00 Active 100 mg PO BID Famotidine [Pepcid] Med 09/22/17 21:00 Active 20 mg PO Q12H Insulin Aspart [NovoLOG] Med 09/22/17 17:00 Active See Protocol SUBCUT QIDACANDBED Ketorolac [Toradol] Med 09/22/17 10:00 Active 15 mg IVPUSH Q6H PRN Lisinopril [Prinivil] Med 09/22/17 11:00 Active 20 mg PO DAILY Loratadine [Claritin] Med 09/23/17 09:00 Active 10 mg PO DAILY PRN Magnesium Hydroxide [Milk of Magnesia] Med 09/22/17 10:00 Active 30 ml PO BID PRN Morphine Med 09/22/17 10:00 Active 2 mg IVPUSH Q2H PRN Multivitamins,Therapeutic [Thera] Med 09/22/17 11:00 Active 1 each PO DAILY Naloxone [Narcan] Med 09/22/17 10:00 Active 0.1 mg IVPUSH Q5M PRN Ondansetron [Zofran] Med 09/22/17 10:00 Active 4 mg IVPUSH Q6H PRN Patient's Own Medication [Ptom] Med 09/22/17 11:00 Active 0 each PO DAILY Rivaroxaban [Xarelto] Med 09/23/17 09:00 Pending 10 mg PO DAILY Sennosides [Senna] Med 09/22/17 10:00 Active 8.6 mg PO BID PRN Zolpidem [Ambien] Med 09/22/17 21:00 Active 10 mg PO BEDTIME PRN amLODIPine [Norvasc] Med 09/23/17 09:00 Active 10 mg PO DAILY ceFAZolin [Ancef] 2 gm Med 09/22/17 17:00 Active Premix Bag 1 bag IV Q8H metFORMIN [Glucophage] Med 09/22/17 17:00 Active 2,000 mg PO BIDMEALS Medication Orders Acetaminophen (Tylenol) 650 - 975 mg PO Q6H PRN PRN Reason: Pain Allopurinol (Zyloprim) 300 mg PO DAILY [facility] Amlodipine Besylate (Norvasc) 10 mg PO DAILY [facility] Aspirin (Halfprin) 81 mg PO DAILY [facility] Bisacodyl (Dulcolax) 5 mg PO DAILY PRN PRN Reason: Constipation Cyclobenzaprine HCl (Flexeril) 10 mg PO TID PRN PRN Reason: Spasms Last Admin: 09/23/17 04:18 Dose: 10 mg Admin: 09/22/17 21:26 Dose: 10 mg Dextrose/Water (Dextrose 50% In Water) 50 ml IVPUSH ASDIRECTED PRN PRN Reason: Hypoglycemia Docusate Sodium (Colace) 100 mg PO BID [facility] Last Admin: 09/22/17 21:25 Dose: 100 mg Famotidine (Pepcid) 20 mg PO Q12H [facility] Last Admin: 09/22/17 21:25 Dose: 20 mg Cefazolin Sodium/Dextrose 2 gm (/ Premix) 50 mls @ 100 mls/hr IV Q8H [facility] Stop: 09/23/17 09:29 Last Admin: 09/23/17 00:33 Dose: 100 mls/hr Infusion: 07/02/18 17:29 Dose: 100 mls/hr Admin: 09/22/17 16:59 Dose: 100 mls/hr Insulin Aspart (Novolog) 0 unit SUBCUT QIDACANDBED [facility]; Protocol Last Admin: 09/23/17 06:37 Dose: Not Given Admin: 09/22/17 22:08 Dose: 2 units Admin: 09/22/17 17:09 Dose: 3 units Ketorolac Tromethamine (Toradol) 15 mg IVPUSH Q6H PRN PRN Reason: Pain Last Admin: 09/23/17 04:14 Dose: 15 mg Admin: 09/22/17 21:31 Dose: 15 mg Lisinopril (Prinivil) 20 mg PO DAILY [facility] Last Admin: 09/22/17 12:47 Dose: 20 mg Loratadine (Claritin) 10 mg PO DAILY PRN PRN Reason: Allergies Magnesium Hydroxide (Milk Of Magnesia) 30 ml PO BID PRN PRN Reason: Constipation Metformin HCl (Glucophage) 2,000 mg PO BIDMEALS [facility] Last Admin: 09/23/17 06:36 Dose: 2,000 mg Admin: 09/22/17 16:59 Dose: mg Morphine Sulfate (Morphine) 2 mg IVPUSH Q2H PRN PRN Reason: Breakthrough Pain Multivitamins (Thera) 1 each PO DAILY [facility] Last Admin: 09/22/17 12:47 Dose: 1 each Naloxone HCl (Narcan) 0.1 mg IVPUSH Q5M PRN PRN Reason: Oversedation Ondansetron HCl (Zofran) 4 mg IVPUSH Q6H PRN PRN Reason: Nausea/Vomiting Last Admin: 09/22/17 20:29 Dose: 4 mg Admin: 09/22/17 13:03 Dose: 4 mg Oxycodone/Acetaminophen (Percocet 325-5 Mg) 1 - 2 tab PO Q4H PRN PRN Reason: Pain Last Admin: 09/22/17 17:10 Dose: 2 tab Terbinafine 250 Mg 0 each PO DAILY [facility] Last Admin: 09/22/17 12:48 Dose: Rivaroxaban (Xarelto) 10 mg PO DAILY [facility] Senna (Senna) 8.6 mg PO BID PRN PRN Reason: Constipation Zolpidem Tartrate (Ambien) 10 mg PO BEDTIME PRN PRN Reason: Insomnia - Assessment Assessment (Free Text/Narrative):: POD#1 - right MEGAN - Plan Plan (Free Text/Narrative):: 1. Hgb 11.4. 2. Xarelto (hx lap band surgery), TEDs, frequent mobility. 3. Discharge to home today. The pt's case was discussed with Dr. Darnell.
--- NOTE | 2017-09-23 08:07 | PCM.DCSUM1 ---
Discharge Summary - Hospital Course Brief History: Jcarlos Fisher" is a 56 yo male who underwent right MEGAN with Dr. Darnell on 09-21-2017. The procedure was completed under spinal anesthesia. The pt tolerated the procedure well and was admitted to the Medical-Surgical Unit. Medical management was provided by the Hospitalist service. The pt's Hospital course was uneventful. The pt's Hgb on POD#1 was 11.4. On POD#1, Xarelto 10mg PO daily was initiated for VTE prophylaxis. SCDs and TEDs were also ordered. A Mepilex dressing was placed at the incision site at the time of surgery and remained clean and dry. The pt participated in P.T. and O.T. and progressed well. He followed the MEGAN precautions. The pt was allowed to WBAT. On POD#1, the pt was deemed appropriate to discharge to home. - Discharge Data Discharge Date: 09/23/17 Discharge Disposition: Home, Self-Care 01 Condition: Good - Patient Summary/Data Consults: Consultations 09/22/17 06:50 Consult to Physician [CONS] Routine OT Evaluation and Treatment [CONS] Routine PT Evaluation and Treatment [CONS] Routine - Patient Instructions Diet: Usual Diet as Tolerated Activity: Apply Ice, As Tolerated, Elevate Extremity, Full Weight Bearing Activity, Other: Follow the total hip precautions. Driving: Do Not Drive Showering/Bathing: May Shower Wound/Incision Care: Keep Operative Site/Wound Site Clean and Dry, Do NOT Change Dressing Notify Provider of: Fever, Increased Pain, Swelling and Redness, Drainage, Nausea and/or Vomiting Other/Special Instructions: Please get up and moving around every hour while awake. This helps to prevent blood clots. Please use your walker and have help with mobility as needed. Please use the Xarelto blood thinner medication daily. At home, please complete the exercises that you learned during the Hospital stay. Schedule for physical therapy. Use the pain medication as needed. The medication may cause drowsiness and constipation. Contact your primary care provider for instructions if you are constipated. You may use a stool softener like docusate sodium or Colace 100mg twice daily and/or a laxative like Miralax daily for constipation. Increase your water and fiber intake while you are using the pain medication. Please try to WEAN from use of the pain medication as soon as able. Wear the GABBIE hose during the day and you may remove these at night. Elevate the limb to decrease swelling. Place ice to the area often. Place a towel between your skin and the blue pad. Use the incentive spirometer often. Take deep breaths throughout the day. Increase your protein intake while you are healing. Please closely monitor your blood sugars and notify your primary care provider with abnormal values. Elevated values will increase the risk of infection. Call the Clinic with questions or concerns - [phone]. - Discharge Plan Prescriptions/Med Rec: Acetaminophen/oxyCODONE [Percocet 325-5 MG] 1 - 2 tab PO Q6H PRN #60 tablet PRN Reason: Pain Rivaroxaban [Xarelto] 10 mg PO DAILY #40 tablet Home Medications: Home Meds Allopurinol [Zyloprim] 300 mg PO DAILY 09/19/17 [History] Aspirin [Adult Aspirin] 81 mg PO DAILY 09/19/17 [History] Lisinopril 20 mg PO DAILY 09/19/17 [History] Loratadine [Claritin] 10 mg PO DAILY PRN 09/19/17 [History] Multivit-Min/FA/Lycopen/Lutein [Centrum Silver Men Tablet] 1 tab PO DAILY [History] Tadalafil [Cialis] 5 mg PO ASDIRECTED PRN 09/19/17 [History] Terbinafine [LamISIL] 250 mg PO DAILY 09/19/17 [History] Zolpidem Tartrate [Ambien] 10 mg PO BEDTIME PRN 09/19/17 [History] amLODIPine Besylate [Amlodipine Besylate] 10 mg PO DAILY 09/19/17 [History] metFORMIN HCl [Metformin HCl] 2,000 mg PO BID 09/19/17 [History] Acetaminophen [Tylenol Extra Strength] 1 - 2 tab PO Q6H PRN #0 09/22/17 [Rx] Acetaminophen/oxyCODONE [Percocet 325-5 MG] 1 - 2 tab PO Q6H PRN #60 tablet 05/11 [Rx] Bisacodyl [Dulcolax] 5 mg PO DAILY PRN tablet 09/22/17 [Rx] Docusate Sodium [Colace] 100 mg PO BID cap 09/22/17 [Rx] Famotidine [Pepcid] 20 mg PO Q12H tablet 09/22/17 [Rx] Magnesium Hydroxide [Milk of Magnesia] 30 ml PO BID PRN cup 09/22/17 [Rx] Rivaroxaban [Xarelto] 10 mg PO DAILY #40 tablet 09/22/17 [Rx] Sennosides [Senna] 8.6 mg PO BID PRN tablet 09/22/17 [Rx] Referrals: Aleja Westfall PA-C [Physician [employer]] - - Patient Data Vitals - Most Recent: Last Vital Signs Temp 99.1 F 09/23/17 04:09 Pulse 88 09/23/17 04:09 Resp 16 09/23/17 04:09 BP 135/78 09/23/17 04:09 Pulse Ox 94 L 09/23/17 04:09 Weight - Most Recent: 271 lb 2 oz I&O - Last 24 hours: Intake & Output 09/22/17 09/23/17 09/23/17 22:59 06:59 14:59 Intake Total 1432 1450 Output Total 50 750 Balance 1382 700 Lab Results - Last 24 hrs: Laboratory Results - last 24 hr 09/22/17 09/22/17 09/22/17 Range/Units 07:30 10:54 15:25 WBC (4.23-9.07) K/mm3 RBC (4.63-6.08) M/mm3 Hgb 13.1 L (13.7-17.5) gm/L Hct 39.3 L (40.1-51.0) % MCV (79.0-92.2) fl MCH (25.7-32.2) pg MCHC (32.2-35.5) g/dl RDW Std Deviation (35.1-43.9) fL Plt Count (163-337) K/mm3 MPV (9.4-12.3) fl Sodium (136-145) mEq/L Potassium (3.5-5.1) mEq/L Chloride (98-107) mEq/L Carbon Dioxide (21-32) mEq/L Anion Gap (5-15) BUN (7-18) mg/dL Creatinine (0.7-1.3) mg/dL Est Cr Clr Drug Dosing mL/min Estimated GFR (MDRD) (>60) mL/min BUN/Creatinine Ratio (14-18) Glucose (74-106) mg/dL POC Glucose 141 H (70-105) mg/dL Calcium (8.5-10.1) mg/dL Total Bilirubin (0.2-1.0) mg/dL AST (15-37) U/L ALT (16-63) U/L Alkaline Phosphatase (46-116) U/L Total Protein (6.4-8.2) g/dl Albumin (3.4-5.0) g/dl Globulin gm/dL Albumin/Globulin Ratio (1-2) Blood Type O POSITIVE Gel Antibody Screen Negative 09/22/17 09/22/17 09/23/17 Range/Units 16:57 21:59 06:35 WBC (4.23-9.07) K/mm3 RBC (4.63-6.08) M/mm3 Hgb (13.7-17.5) gm/L Hct (40.1-51.0) % MCV (79.0-92.2) fl MCH (25.7-32.2) pg MCHC (32.2-35.5) g/dl RDW Std Deviation (35.1-43.9) fL Plt Count (163-337) K/mm3 MPV (9.4-12.3) fl Sodium (136-145) mEq/L Potassium (3.5-5.1) mEq/L Chloride (98-107) mEq/L Carbon Dioxide (21-32) mEq/L Anion Gap (5-15) BUN (7-18) mg/dL Creatinine (0.7-1.3) mg/dL Est Cr Clr Drug Dosing mL/min Estimated GFR (MDRD) (>60) mL/min BUN/Creatinine Ratio (14-18) Glucose (74-106) mg/dL POC Glucose 252 H 225 H 123 H (70-105) mg/dL Calcium (8.5-10.1) mg/dL Total Bilirubin (0.2-1.0) mg/dL AST (15-37) U/L ALT (16-63) U/L Alkaline Phosphatase (46-116) U/L Total Protein (6.4-8.2) g/dl Albumin (3.4-5.0) g/dl Globulin gm/dL Albumin/Globulin Ratio (1-2) Blood Type Gel Antibody Screen 09/23/17 09/23/17 Range/Units 06:45 06:45 WBC 7.36 (4.23-9.07) K/mm3 RBC 3.89 L (4.63-6.08) M/mm3 Hgb 11.4 L (13.7-17.5) gm/L Hct 34.7 L (40.1-51.0) % MCV 89.2 (79.0-92.2) fl MCH 29.3 (25.7-32.2) pg MCHC 32.9 (32.2-35.5) g/dl RDW Std Deviation 43.1 (35.1-43.9) fL Plt Count 155 L (163-337) K/mm3 MPV 9.1 L (9.4-12.3) fl Sodium 140 (136-145) mEq/L Potassium 4.3 (3.5-5.1) mEq/L Chloride 107 (98-107) mEq/L Carbon Dioxide 28 (21-32) mEq/L Anion Gap 9.3 (5-15) BUN 26 H (7-18) mg/dL Creatinine 1.0 (0.7-1.3) mg/dL Est Cr Clr Drug Dosing 93.66 mL/min Estimated GFR (MDRD) > 60 (>60) mL/min BUN/Creatinine Ratio 26.0 H (14-18) Glucose 116 H (74-106) mg/dL POC Glucose (70-105) mg/dL Calcium 8.5 (8.5-10.1) mg/dL Total Bilirubin 0.5 (0.2-1.0) mg/dL AST 22 (15-37) U/L ALT 27 (16-63) U/L Alkaline Phosphatase 66 (46-116) U/L Total Protein 5.7 L (6.4-8.2) g/dl Albumin 2.9 L (3.4-5.0) g/dl Globulin 2.8 gm/dL Albumin/Globulin Ratio 1.0 (1-2) Blood Type Gel Antibody Screen Med Orders - Current: Current Medications Acetaminophen (Tylenol) 650 - 975 mg PO Q6H PRN PRN Reason: Pain Allopurinol (Zyloprim) 300 mg PO DAILY [facility] Amlodipine Besylate (Norvasc) 10 mg PO DAILY [facility] Aspirin (Halfprin) 81 mg PO DAILY [facility] Bisacodyl (Dulcolax) 5 mg PO DAILY PRN PRN Reason: Constipation Cyclobenzaprine HCl (Flexeril) 10 mg PO TID PRN PRN Reason: Spasms Last Admin: 09/23/17 04:18 Dose: 10 mg Dextrose/Water (Dextrose 50% In Water) 50 ml IVPUSH ASDIRECTED PRN PRN Reason: Hypoglycemia Docusate Sodium (Colace) 100 mg PO BID [facility] Last Admin: 09/22/17 21:25 Dose: 100 mg Famotidine (Pepcid) 20 mg PO Q12H [facility] Last Admin: 09/22/17 21:25 Dose: 20 mg Cefazolin Sodium/Dextrose 2 gm (/ Premix) 50 mls @ 100 mls/hr IV Q8H [facility] Stop: 09/23/17 09:29 Last Admin: 09/23/17 00:33 Dose: 100 mls/hr Insulin Aspart (Novolog) 0 unit SUBCUT QIDACANDBED [facility]; Protocol Last Admin: 09/23/17 06:37 Dose: Not Given Ketorolac Tromethamine (Toradol) 15 mg IVPUSH Q6H PRN PRN Reason: Pain Last Admin: 09/23/17 04:14 Dose: 15 mg Lisinopril (Prinivil) 20 mg PO DAILY [facility] Last Admin: 09/22/17 12:47 Dose: 20 mg Loratadine (Claritin) 10 mg PO DAILY PRN PRN Reason: Allergies Magnesium Hydroxide (Milk Of Magnesia) 30 ml PO BID PRN PRN Reason: Constipation Metformin HCl (Glucophage) 2,000 mg PO BIDMEALS [facility] Last Admin: 09/23/17 06:36 Dose: 2,000 mg Morphine Sulfate (Morphine) 2 mg IVPUSH Q2H PRN PRN Reason: Breakthrough Pain Multivitamins (Thera) 1 each PO DAILY [facility] Last Admin: 09/22/17 12:47 Dose: 1 each Naloxone HCl (Narcan) 0.1 mg IVPUSH Q5M PRN PRN Reason: Oversedation Ondansetron HCl (Zofran) 4 mg IVPUSH Q6H PRN PRN Reason: Nausea/Vomiting Last Admin: 09/22/17 20:29 Dose: 4 mg Oxycodone/Acetaminophen (Percocet 325-5 Mg) 1 - 2 tab PO Q4H PRN PRN Reason: Pain Last Admin: 09/22/17 17:10 Dose: 2 tab Terbinafine 250 Mg 0 each PO DAILY [facility] Last Admin: 09/22/17 12:48 Dose: Not Given Rivaroxaban (Xarelto) 10 mg PO DAILY [facility] Senna (Senna) 8.6 mg PO BID PRN PRN Reason: Constipation Zolpidem Tartrate (Ambien) 10 mg PO BEDTIME PRN PRN Reason: Insomnia Discontinued Medications Acetaminophen (Tylenol) 975 mg PO ONETIME [facility] Stop: 09/22/17 12:00 Bupivacaine HCl (Marcaine 0.25%) Confirm Administered Dose 30 ml .ROUTE .STK- MED ONE Stop: 09/22/17 07:18 Last Admin: 09/22/17 10:19 Dose: 30 ml Bupivacaine HCl (Sensorcaine-Mpf 0.75%) Confirm Administered Dose 30 ml .ROUTE .STK-MED ONE Stop: 09/22/17 08:12 Bupivacaine HCl (Sensorcaine-Mpf 0.75%) Confirm Administered Dose 30 ml .ROUTE .STK-MED ONE Stop: 09/22/17 09:02 Bupivacaine HCl/Dextrose (Marcaine 0.75% Spinal) Confirm Administered Dose 2 ml .ROUTE .STK-MED ONE Stop: 09/22/17 08:23 Cefazolin Sodium (Ancef) Confirm Administered Dose 3 gm .ROUTE .STK-MED ONE Stop: 09/22/17 07:17 Cefazolin Sodium (Ancef) Confirm Administered Dose 2 gm .ROUTE .STK-MED ONE Stop: 09/22/17 07:18 Last Admin: 09/22/17 10:13 Dose: 2 gm Morphine Sulfate 8 mg/Epinephrine HCl 0.3 mg/Cefuroxime Sodium 750 mg/Ketorolac Tromethamine 30 mg/Sodium Chloride 27.9 ml 0 mg .XX ONETIME ONE Stop: 09/22/17 09:01 Last Admin: 09/22/17 21:36 Dose: Not Given Diphenhydramine HCl (Benadryl) 25 mg IVPUSH Q6H PRN PRN Reason: pruritis Stop: 09/22/17 12:00 Ephedrine Sulfate (Ephedrine Sulfate) 5 mg IVPUSH ASDIRECTED PRN PRN Reason: Hypotension Stop: 09/22/17 12:00 Fentanyl (Sublimaze) Confirm Administered Dose 100 mcg .ROUTE .STK-MED ONE Stop: 09/22/17 07:18 Fentanyl (Sublimaze) 50 mcg IVPUSH Q5M PRN PRN Reason: Pain Stop: 09/22/17 12:00 Hydromorphone HCl (Dilaudid) 0.5 mg IVPUSH ONETIME PRN PRN Reason: Pain Stop: 09/22/17 12:00 Hydromorphone HCl (Dilaudid) Confirm Administered Dose 0.5 mg .ROUTE .STK-MED ONE Stop: 09/22/17 09:58 Hydromorphone HCl (Dilaudid) Confirm Administered Dose 0.5 mg .ROUTE .STK-MED ONE Stop: 09/22/17 10:13 Hydromorphone HCl (Dilaudid) Confirm Administered Dose 0.5 mg .ROUTE .STK-MED ONE Stop: 09/22/17 10:27 Lactated Ringer's (Ringers, Lactated) 1,000 mls @ 125 mls/hr IV ASDIRECTED [facility] Stop: 09/22/17 23:00 Last Admin: 09/22/17 14:40 Dose: 125 mls/hr Lidocaine HCl (Xylocaine-Mpf 1%) Confirm Administered Dose 10 mls @ as directed .ROUTE .STK-MED ONE Stop: 09/22/17 07:17 Lactated Ringer's (Ringers, Lactated) Confirm Administered Dose 1,000 mls @ as directed .ROUTE .STK-MED ONE Stop: 09/22/17 07:17 Lactated Ringer's (Ringers, Lactated) Confirm Administered Dose 1,000 mls @ as directed .ROUTE .STK-MED ONE Stop: 09/22/17 08:37 Phenylephrine HCl 1 mg/ Sodium (Chloride) 10.1 mls @ 1 mls/sec IV TITRATE [facility]; Protocol Stop: 09/22/17 12:00 Iodine (Iodine 2% Mild Tincture) Confirm Administered Dose 30 ml .ROUTE .STK- MED ONE Stop: 09/22/17 07:18 Last Admin: 09/22/17 10:11 Dose: 18 ml Ketamine HCl (Ketalar) Confirm Administered Dose 500 mg .ROUTE .STK-MED ONE Stop: 09/22/17 07:19 Ketorolac Tromethamine (Toradol) Confirm Administered Dose 30 mg .ROUTE .STK- MED ONE Stop: 09/22/17 10:23 Lidocaine/Sodium Bicarbonate (Buffered Lidocaine 1% In Ns 8.4%) 0.25 ml IDERM ONETIME PRN PRN Reason: Prior to IV Start Stop: 09/22/17 18:00 Last Admin: 09/22/17 07:29 Dose: 0.25 ml Non-Formulary Medication (Sitagliptin) 100 mg PO DAILY [facility] Last Admin: 09/22/17 21:37 Dose: Not Given Non-Formulary Medication (Tadalafil [Cialis]) 5 mg PO ASDIRECTED PRN PRN Reason: as directed Ondansetron HCl (Zofran) Confirm Administered Dose 4 mg .ROUTE .STK-MED ONE Stop: 09/22/17 07:17 Ondansetron HCl (Zofran) 4 mg IVPUSH ONETIME PRN PRN Reason: Nausea/Vomiting Stop: 09/22/17 12:00 Oxycodone HCl (Oxycontin) 10 mg PO ONETIME [facility] Stop: 09/22/17 12:00 Phenylephrine HCl (Phenylephrine In Ns 100 Mcg/Ml) Confirm Administered Dose 1 mg .ROUTE .STK-MED ONE Stop: 09/22/17 07:17 Pregabalin (Lyrica) 50 mg PO ONETIME [facility] Stop: 09/22/17 12:00 Propofol (Diprivan 20 Ml) Confirm Administered Dose 400 mg .ROUTE .STK-MED ONE Stop: 09/22/17 07:18 Propofol (Diprivan 20 Ml) Confirm Administered Dose 200 mg .ROUTE .STK-MED ONE Stop: 09/22/17 09:53 Sodium Chloride (Saline Flush) 10 ml FLUSH ASDIRECTED PRN PRN Reason: Keep Vein Open Stop: 09/22/17 18:00 Tranexamic Acid (Cyklokapron) Confirm Administered Dose 1,000 mg .ROUTE .STK- MED ONE Stop: 09/22/17 07:18 Last Admin: 09/22/17 10:20 Dose: 1,000 mg Vancomycin HCl (Vancomycin) Confirm Administered Dose 1 gm .ROUTE .STK-MED ONE Stop: 09/22/17 07:18 Last Admin: 09/22/17 10:20 Dose: 1 gm
--- NOTE | 2017-09-23 08:20 | PCM48HPAN ---
Post Anesthesia Note - EVALUATION WITHIN 48HRS OF ANESTHETIC Vital Signs in Normal Range: Yes Patient Participated in Evaluation: Yes Respiratory Function Stable: Yes Airway Patent: Yes Cardiovascular Function Stable: Yes Hydration Status Stable: Yes Pain Control Satisfactory: Yes Nausea and Vomiting Control Satisfactory: Yes Mental Status Recovered: Yes Pulse Rate: 88 Resp Rate: 16 Temperature: 99.1 F Blood Pressure: 135/78
[2017-09-23] MEDS: Multivitamins,Therapeutic Tab PO SCH (08:52)
[2017-09-23] MEDS: Famotidine 20 MG Tab PO SCH (08:52)
[2017-09-23] MEDS: Docusate Sodium 100 MG Cap PO SCH (08:54)
[2017-09-23] MEDS: Lisinopril 20 MG Tab PO SCH (08:54)
[2017-09-23] MEDS: TERBINAFINE 250 MG PO SCH (08:55)
[2017-09-23] MEDS ORDERED: Loratadine 10 MG Tab PO PRN (09:00)
[2017-09-23] MEDS ORDERED: amLODIPine 10 MG Tab PO SCH (09:00)
[2017-09-23] MEDS ORDERED: Rivaroxaban 10 MG Tab PO SCH (09:00)
[2017-09-23] MEDS ORDERED: Aspirin 81 MG Tab.EC PO SCH (09:00)
[2017-09-23] MEDS ORDERED: Allopurinol 300 MG Tab PO SCH (09:00)
--- NOTE | 2017-09-30 09:15 | PCM.OPNOTE ---
- General Post-Op/Procedure Note Date of Surgery/Procedure: 09/22/17 Operative Procedure(s): right total hip arthroplasty Pre Op Diagnosis: right hip osteoarthrosis Post-Op Diagnosis: Same Anesthesia Technique: Local, MAC, Spinal Primary Surgeon: Marco Darnell Anesthesia Provider: Chiqui Kaur Site Specialist: Aleja Westfall Site Specialist: Jeanette Blair EBL in mLs: 750 Complications: None Condition: Good Free Text/Narrative:: size 62 7 stem
--- NOTE | 2017-09-30 10:20 | OR ---
DATE OF OPERATION: 09/22/2017 SURGEON: Marco Darnell MD OPERATION PERFORMED: Right total hip arthroplasty. PREOPERATIVE DIAGNOSIS: Right hip osteoarthrosis. POSTOPERATIVE DIAGNOSIS: Right hip osteoarthrosis. ANESTHESIA: Local, MAC, spinal. ANESTHESIA PROVIDER: Chiqui Kaur CRNA. ASSISTANTS: Aleja Westfall PA-C, and Jeanette Blair LPN. ESTIMATED BLOOD LOSS: 150 mL. COMPLICATIONS: None. CONDITION: Stable. IMPLANT: 1. [place] size 62 Tritanium acetabular cup. 2. Ana size 7 Accolade II stem. 3. Ana size 28 x 48 MDM components +0. DESCRIPTION OF PROCEDURE: The patient was identified in the preoperative holding area. Proper site was marked and identified by the surgeon. The patient was taken back to the operating theater, where after adequate anesthesia, the patient was placed in left lateral decubitus position. Axillary roll was placed. The patient's gluteal fold was parallel to the floor. At this time, all bony prominences were well padded. PEGs were then placed and were well padded. The right hip was then sterilely prepped and draped in the usual sterile fashion. OR time-out was performed. The patient received 2 g IV Ancef. At this time, a standard posterior incision was made centered over the greater trochanter. This was taken down to the IT band and gluteal fascia was incised along the incisional length. Charnley retractor was then placed. The short external rotators were identified, take down of the short external rotators as well as capsule was done from the level of the piriformis down to the lesser trochanter. At this time, the hip was dislocated. Neck cut was then completed. Anterior and posterior acetabular retractors were then placed. The pulvinar along with any remaining labrum were then excised, starting with a size 50 reamer, I was able to ream up to a 62 which was found to have a good adequate bone stock. At this time, a 62 mm Tritanium acetabular cup was impacted and placed roughly 45 degrees as well as roughly 10 degrees of anteversion. At this time, the MDM liner was impacted into place. Attention was turned to the femur. A box chisel was used out laterally. Starter awl was placed down the canal. A zero broach was then utilized, all the way up to size 7, which was found to be rotationally and vertically stable. Trial components were then placed with a +0 and hip was reduced. It was found to have adequate denominational of leg lengths and hip was stable throughout range of motion. At this time, the hip was dislocated with the use of bone hook and the size 7 Accolade II stem was impacted into place along with a 20 x 48 MDM components. Hip was then relocated and 2 #5 Ethibond sutures were used for closure of the short external rotators and capsule. 1 L dilute Betadine solution was irrigated through the hip along with 3 L of pulse lavage irrigation with Ancef. A #2 barbed suture was used for closure of the IT band and gluteal fascia, 2-0 Vicryl was used subcutaneously, and Prineo was used for the skin. The patient was sent to PACU in stable condition having tolerated the procedure well. LARISA /[id number]
== END 2017-09-23 11:55 | disposition home or self-care (01) | DRG 301 ==
LOC: JD.MS 06:59
PROVIDERS: ADMIT Orthopaedic Surgery; ATTEND Orthopaedic Surgery
PROC: 0SR90JZ Replacement of Right Hip Joint with Synthetic Substitute, Open Approach (ICD-10-PCS; principal; 2017-09-22)
DX: M16.11 Unilateral primary osteoarthritis, right hip (principal); E11.9 Type 2 diabetes mellitus without complications; I10 Essential (primary) hypertension; E78.5 Hyperlipidemia, unspecified; M10.9 Gout, unspecified; H54.7 Unspecified visual loss; E78.00 Pure hypercholesterolemia, unspecified; R11.0 Nausea; G47.33 Obstructive sleep apnea (adult) (pediatric); Z91.19 Patient's noncompliance with other medical treatment and regimen; Z79.84 Long term (current) use of oral hypoglycemic drugs; Z79.82 Long term (current) use of aspirin; Z85.46 Personal history of malignant neoplasm of prostate; Z88.8 Allergy status to other drugs, medicaments and biological substances; Z98.84 Bariatric surgery status; Z90.79 Acquired absence of other genital organ(s); Z87.891 Personal history of nicotine dependence; Z87.442 Personal history of urinary calculi; Z79.899 Other long term (current) drug therapy
CPT/HCPCS: 01214; 36415; 73501-26-RT; 73501-RT; 80053; 82962; 85014; 85018; 85027; 86850; 86900; 86901; 87641; 97110-GP; 97116-GP; 97161-GP; 97165-GO; 97535-GO; A9270-GY; C1776; J0171; J0690; J0697; J1170; J1815-GY; J1885; J2001; J2270; J2405; J2704; J3010; J3370; J3490; J7120

== ENCOUNTER 2017-09-26 12:26 | Emergency (ER) | payer BC ==
--- NOTE | 2017-09-26 13:54 | EDM.PDOC ---
ED HPI GENERAL MEDICAL PROBLEM - General Chief Complaint: Lower Extremity Injury/Pain Stated Complaint: POST SURGICAL ISSUES Time Seen by Provider: 09/26/17 13:28 Source of Information: Reports: Patient, Family (), Provider (Dr. Darnell, in the ED) History Limitations: Reports: No Limitations - History of Present Illness INITIAL COMMENTS - FREE TEXT/NARRATIVE: The patient states that he underwent a right total hip arthroplasty per Dr. Darnell this past 09/22/2017. He states that he was discharged home the next day, 09/23/2017, with prescriptions for Xarelto, [place], and Flexeril. The case was discussed with Dr. Darnell, who evaluated the patient here in the ED, and indicated that the patient was instructed to take a baby aspirin twice a day, however, the patient states that he is not aware of that, and that he has not been taking aspirin. The patient now presents with right lower extremity swelling since yesterday, 09/25/2017. He states that he developed right flank pain last night, that radiated all the way down his right lower extremity to his foot, but only when he was supine. The flank pain and radiation resolved this morning. He states that the flank pain was similar to when he had a kidney stone. No recent fever, chills, chest pain, dyspnea, or palpitations. The patient is unsure if he has had nausea , but has not had any emesis, constipation, diarrhea, or urinary symptoms. The patient states that he has been sleeping a lot, and that when he ambulates, he uses a walker. He does not start physical therapy until this coming Friday, . The patient's PCP is Dr. Ac. Right Hip Pain Score (Numeric/FACES): 0 - Related Data Allergies Allergy/AdvReac Type Severity Reaction Status Date / Time Llrbnlm-Cmf-Vpu Reductase AdvReac Muscle Verified 09/26/17 12:58 Inhibitor Aches Home Meds: Home Meds Allopurinol [Zyloprim] 300 mg PO DAILY 09/19/17 [History] Aspirin [Adult Aspirin] 81 mg PO DAILY 09/19/17 [History] Lisinopril 20 mg PO DAILY 09/19/17 [History] Loratadine [Claritin] 10 mg PO DAILY PRN 09/19/17 [History] Multivit-Min/FA/Lycopen/Lutein [Centrum Silver Men Tablet] 1 tab PO DAILY [History] Tadalafil [Cialis] 5 mg PO ASDIRECTED PRN 09/19/17 [History] Terbinafine [LamISIL] 250 mg PO DAILY 09/19/17 [History] Zolpidem Tartrate [Ambien] 10 mg PO BEDTIME PRN 09/19/17 [History] amLODIPine Besylate [Amlodipine Besylate] 10 mg PO DAILY 09/19/17 [History] metFORMIN HCl [Metformin HCl] 2,000 mg PO BID 09/19/17 [History] Acetaminophen [Tylenol Extra Strength] 1 - 2 tab PO Q6H PRN #0 09/22/17 [Rx] Bisacodyl [Dulcolax] 5 mg PO DAILY PRN tablet 09/22/17 [Rx] Docusate Sodium [Colace] 100 mg PO BID cap 09/22/17 [Rx] Famotidine [Pepcid] 20 mg PO Q12H tablet 09/22/17 [Rx] Magnesium Hydroxide [Milk of Magnesia] 30 ml PO BID PRN cup 09/22/17 [Rx] Rivaroxaban [Xarelto] 10 mg PO DAILY #40 tablet 09/22/17 [Rx] Sennosides [Senna] 8.6 mg PO BID PRN tablet 09/22/17 [Rx] Acetaminophen/HYDROcodone [[place] 325-5 MG] 1 - 2 tab PO Q6H PRN #40 tablet 09/23 [Rx] Cyclobenzaprine [Flexeril] 10 mg PO Q8HR PRN #40 tab 09/23/17 [Rx] Past Medical History HEENT History: Reports: Impaired Vision Cardiovascular History: Reports: Hypertension Respiratory History: Reports: Sleep Apnea Genitourinary History: Reports: Renal Calculus Musculoskeletal History: Reports: Gout (suspected, not confirmed), Osteoarthritis Endocrine/Metabolic History: Reports: Diabetes, Type II Oncologic (Cancer) History: Reports: Prostate - Past Surgical History HEENT Surgical History: Reports: Oral Surgery ([place] teeth extraction), Tonsillectomy, Other (See Below) (Soft palate excision for obstructive sleep apnea) GI Surgical History: Reports: Bariatric Procedure (Lap Band), Colonoscopy Male Surgical History: Reports: Lithotripsy ([facility]), Prostate Biopsy, Prostatectomy (2009) Musculoskeletal Surgical History: Reports: Carpal Tunnel (bilateral), Hip Replacement (right, 09/22/2017) Social & Family History - Family History Family Medical History: Noncontributory - Tobacco Use Smoking Status *Q: Never Smoker - Caffeine Use Caffeine Use: Reports: Soda - Alcohol Use Alcohol Use History: Yes Alcohol Use Frequency: Socially - Recreational Drug Use Recreational Drug Use: No - Living Situation & Occupation Living situation: Reports: , with Spouse 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 ED EXAM, GENERAL - Physical Exam Exam: See Below Exam Limited By: No Limitations General Appearance: Alert, WD/WN, No Apparent Distress, Other (The patient sat up very slowly, on his own power, due to postoperative right hip pain) Eye Exam: Bilateral Eye: Normal Inspection Ears: Normal External Exam, Hearing Grossly Normal Nose: Normal Inspection, No Blood Throat/Mouth: Normal Inspection, Normal Lips, Normal Voice, No Airway Compromise Head: Atraumatic, Normocephalic Neck: Normal Inspection, Full Range of Motion Respiratory/Chest: No Respiratory Distress, Lungs Clear, Normal Breath Sounds, No Accessory Muscle Use Cardiovascular: Normal Peripheral Pulses, Regular Rate, Rhythm, No Gallop, No JVD, No Murmur, No Rub Peripheral Pulses: 4+: Radial (L), Radial (R) GI/Abdominal: Normal Bowel Sounds, Soft, Non-Tender, No Organomegaly, No Distention, No Abnormal Bruit, No Mass, Other (Obese) (Male) Exam: Deferred Rectal (Males) Exam: Deferred Back Exam: Normal Inspection, Full Range of Motion. No: CVA Tenderness (L), CVA Tenderness (R) Extremities: Non-Tender, Normal Capillary Refill, Other (The right lower extremity is swollen, when compared to the left, there is some erythema noted to the posterior right thigh. Chronic venous stasis changes to both legs, although no significant edema to either leg at this time. Neurovascular status of both lower extremities is intact.) Neurological: Alert, Oriented, Normal Cognition, No Motor/Sensory Deficits Psychiatric: Normal Affect Skin Exam: Warm, Dry, Intact, Normal Color, No Rash Course - Vital Signs Last Recorded V/S: Last Vital Signs Temp 36.8 C 07/06/18 12:58 Pulse 88 09/26/17 12:58 Resp 18 09/26/17 12:58 BP 132/83 09/26/17 12:58 Pulse Ox 93 L 09/26/17 12:58 Orthostatic Blood Pressure [ 116/76 Standing] Orthostatic Blood Pressure [ 114/75 Sitting] - Orders/Labs/Meds Orders: Active Orders 24 hr Category Date Time Status UA W/MICROSCOPIC [URIN] Stat Lab 09/26/17 14:15 Ordered Labs: Laboratory Tests 09/26/17 09/26/17 09/26/17 Range/Units 14:15 14:28 14:28 WBC 6.91 (4.23-9.07) K/mm3 RBC 4.05 L (4.63-6.08) M/mm3 Hgb 11.9 L (13.7-17.5) gm/L Hct 36.0 L (40.1-51.0) % MCV 88.9 (79.0-92.2) fl MCH 29.4 (25.7-32.2) pg MCHC 33.1 (32.2-35.5) g/dl RDW Std Deviation 42.3 (35.1-43.9) fL Plt Count 232 (163-337) K/mm3 MPV 8.5 L (9.4-12.3) fl Neutrophils % (Manual) 72 H (40-60) % Band Neutrophils % 0 (0-10) % Lymphocytes % (Manual) 18 L (20-40) % Atypical Lymphs % 0 % Monocytes % (Manual) 7 (2-10) % Eosinophils % (Manual) 1 (0.8-7.0) % Basophils % (Manual) 1 (0.2-1.2) Myelocytes % 1 Platelet Estimate Adequate Plt Morphology Comment Normal RBC Morph Comment Normal Sodium 139 (136-145) mEq/L Potassium 4.7 (3.5-5.1) mEq/L Chloride 104 (98-107) mEq/L Carbon Dioxide 29 (21-32) mEq/L Anion Gap 10.7 (5-15) BUN 18 (7-18) mg/dL Creatinine 0.9 (0.7-1.3) mg/dL Est Cr Clr Drug Dosing 104.02 mL/min Estimated GFR (MDRD) > 60 (>60) mL/min BUN/Creatinine Ratio 20.0 H (14-18) Glucose 107 H (74-106) mg/dL Calcium 9.3 (8.5-10.1) mg/dL Total Bilirubin 0.4 (0.2-1.0) mg/dL AST 25 (15-37) U/L ALT 29 (16-63) U/L Alkaline Phosphatase 66 (46-116) U/L Total Protein 6.6 (6.4-8.2) g/dl Albumin 2.9 L (3.4-5.0) g/dl Globulin 3.7 gm/dL Albumin/Globulin Ratio 0.8 L (1-2) Urine Color Yellow (Yellow) Urine Appearance Clear (Clear) Urine pH 5.5 (5.0-8.0) Ur Specific [place] > or = 1.030 (1.005-1.030) Urine Protein Trace H (Negative) Urine Glucose (UA) 2+ H (Negative) Urine Ketones Trace H (Negative) Urine Occult Blood Negative (Negative) Urine Nitrite Negative (Negative) Urine Bilirubin Negative (Negative) Urine Urobilinogen 0.2 (0.2-1.0) Ur Leukocyte Esterase Negative (Negative) Urine RBC 0-5 (0-5) /hpf Urine WBC 0-5 (0-5) /hpf Ur Epithelial Cells Not seen (0-5) /hpf Urine Bacteria Rare (FEW) /hpf Urine Mucus Not seen (FEW) /hpf - Re-Assessments/Exams Free Text/Narrative Re-Assessment/Exam: 09/26/17 13:53 The patient reports malaise whenever he stands, as well as right flank pain extending all the way down his right lower extremity last night, as well as right lower extremity swelling today. The patient states that he is taking Xarelto once a day, but that he is not taking the aspirin twice a day that he was instructed to. I have ordered a CBC and CMP, to make sure that the patient is not significantly anemic, orthostatics to make sure that he has not intravascular depleted, a urinalysis to look for evidence of hematuria or UTI, the Doppler of the right lower extremity to evaluate for DVT. 09/26/17 14:23 The patient is not orthostatic. 09/26/17 15:15 Doppler ultrasound of the right lower extremity is read by Dr. Poole as: 1. No evidence of deep venous thrombosis within the right lower extremity or within the left common femoral vein. 09/26/17 15:18 Test results discussed with the patient and his . Today's workup is entirely unremarkable. The edema that the patient is experiencing in his right lower extremities likely due to extravasation of blood from his hip from surgery. The patient's right flank pain is likely due to a muscle spasm. I will discharge the patient home with the recommendation that he continue his postoperative instructions as given to him by Dr. Darnell. Departure - Departure Time of Disposition: 15:20 Disposition: Home, Self-Care 01 Condition: Good Clinical Impression: Postoperative edema, Muscle spasm of back - Discharge Information Instructions: Muscle Cramps and Spasms, [id number], Edema, [id number] Referrals: Marco Darnell MD [Physician] - Forms: ED Department Discharge Additional Instructions: You were seen in the emergency room for swelling of your right lower extremity, and right flank pain radiating down your right leg, following a total hip replacement on 09/22/2017. Workup in the ER included blood work, a urinalysis, positional blood pressure checked, and a Doppler ultrasound of your right lower extremity. Your entire workup was unremarkable. There is no suggestion of an infection. You are not significantly anemic. Your electrolytes are all within normal limits. You do not have a urinary tract infection, and there is no evidence of a recent kidney stone. Your blood pressure maintained itself adequately between lying and standing, and you do not have a blood clot in your right lower extremity. Continue to take the Xarelto, [place], and Flexeril as prescribed by Dr. Darnell. Dr. Darnell had indicated that he also wanted you on a baby aspirin twice a day - check your discharge instructions to see if that is the case. Continue to follow the postoperative instructions as directed by Dr. Darnell. If any other problems, please do not hesitate to return to the ER. - My Orders Last 24 Hours: My Active Orders 09/26/17 14:15 UA W/MICROSCOPIC [URIN] Stat - Assessment/Plan Last 24 Hours: My Active Orders 09/26/17 14:15 UA W/MICROSCOPIC [URIN] Stat
--- NOTE | 2017-09-26 15:02 | US ---
Right lower extremity deep venous ultrasound: Duplex and color flow imaging was obtained of the right common femoral, proximal greater saphenous, superficial femoral, popliteal, posterior tibial and peroneal veins. Left common femoral vein was also evaluated. Findings: Normal phasic flow, augmentation and compression is seen. 2 lymph nodes are seen within the right groin which are believed to be incidental. Impression: 1. No evidence of deep venous thrombosis within the right lower extremity or within the left common femoral vein. Diagnostic code #1
== END 2017-09-26 15:50 | disposition home or self-care (01) ==
LOC: JD.ED 12:26
DX: R60.0 Localized edema (principal); I10 Essential (primary) hypertension; M62.830 Muscle spasm of back; E11.9 Type 2 diabetes mellitus without complications; Z96.641 Presence of right artificial hip joint; Z88.8 Allergy status to other drugs, medicaments and biological substances; Z79.899 Other long term (current) drug therapy; Z79.82 Long term (current) use of aspirin; Z87.442 Personal history of urinary calculi; Z98.84 Bariatric surgery status; Z98.890 Other specified postprocedural states; Z79.84 Long term (current) use of oral hypoglycemic drugs
CPT/HCPCS: 36415; 80053; 81001; 85007; 85027; 93971-26-RT; 93971-RT; 99284-25

== ENCOUNTER 2018-04-17 18:38 | Emergency (ER) | payer BC ==
[2018-04-17] MEDS ORDERED: Sodium Chloride 0.9% 10 ML Syringe FLUSH PRN (19:10)
[2018-04-17] MEDS ORDERED: Nitroglycerin 2% Oint 1 GM UD Packet TOP ONE (19:10)
[2018-04-17] MEDS ORDERED: Aspirin 81 MG Tab.Chew PO ONE (19:10)
--- NOTE | 2018-04-17 20:25 | EDM.PDOC ---
ED HPI GENERAL MEDICAL PROBLEM - General Chief Complaint: Chest Pain Stated Complaint: CHEST PAIN/LEFT ARM PAIN/FACE NUMB Time Seen by Provider: 04/17/18 19:40 Source of Information: Reports: Patient, Family History Limitations: Reports: No Limitations - History of Present Illness INITIAL COMMENTS - FREE TEXT/NARRATIVE: This is a 57-year-old male. He had onset of some chest pain and pressure around 3 PM this afternoon. He does take a baby aspirin daily me he took one today. During the time he was having this chest pain or pressure he did complain of left arm and fingers feeling somewhat numb and cool as well as some numbness and tingling to his face and his lips. He states that the left- sided chest tightness or pressure seemed to go into his left armpit but not down his arm or into his neck or his jaw. Denies any shortness of breath any nausea and vomiting or diaphoresis with the chest tightness. 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 He thinks maybe 2 or 3 weeks ago he had some sort of symptoms he thought may be would explain the previous heart attack but he's never been diagnosed with a previous heart attack. He was also noted to have a slightly enlarged left ventricle with a very low ejection fraction of 30%. With the Cardiolite stress test there were no findings reversible ischemia. During the procedure he was noted to have some ST segment depression in lead 5 only but he had no complaints of chest pain at the time. He is scheduled to see a missile control pilot at [facility] on Friday the . The missile control pilot is Dr. Oly Peterson. Left Chest Pain Score (Numeric/FACES): 3 - Related Data Allergies Allergy/AdvReac Type Severity Reaction Status Date / Time Cdendez-Dar-Knw Reductase AdvReac Muscle Verified 04/17/18 19:49 Inhibitor Aches Home Meds: Home Meds Allopurinol [Zyloprim] 300 mg PO DAILY 09/19/17 [History] Aspirin [Adult Aspirin] 81 mg PO DAILY 09/19/17 [History] Lisinopril 20 mg PO DAILY 09/19/17 [History] Loratadine [Claritin] 10 mg PO DAILY PRN 09/19/17 [History] Multivit-Min/FA/Lycopen/Lutein [Centrum Silver Men Tablet] 1 tab PO DAILY [History] Tadalafil [Cialis] 5 mg PO ASDIRECTED PRN 09/19/17 [History] Terbinafine [LamISIL] 250 mg PO DAILY 09/19/17 [History] Zolpidem Tartrate [Ambien] 10 mg PO BEDTIME PRN 09/19/17 [History] amLODIPine Besylate [Amlodipine Besylate] 10 mg PO DAILY 09/19/17 [History] metFORMIN HCl [Metformin HCl] 2,000 mg PO BID 09/19/17 [History] Acetaminophen [Tylenol Extra Strength] 1 - 2 tab PO Q6H PRN #0 09/22/17 [Rx] Bisacodyl [Dulcolax] 5 mg PO DAILY PRN tablet 09/22/17 [Rx] Docusate Sodium [Colace] 100 mg PO BID cap 09/22/17 [Rx] Famotidine [Pepcid] 20 mg PO Q12H tablet 09/22/17 [Rx] Magnesium Hydroxide [Milk of Magnesia] 30 ml PO BID PRN cup 09/22/17 [Rx] Rivaroxaban [Xarelto] 10 mg PO DAILY #40 tablet 09/22/17 [Rx] Sennosides [Senna] 8.6 mg PO BID PRN tablet 09/22/17 [Rx] Acetaminophen/HYDROcodone [[place] 325-5 MG] 1 - 2 tab PO Q6H PRN #40 tablet 09/23 [Rx] Cyclobenzaprine [Flexeril] 10 mg PO Q8HR PRN #40 tab 09/23/17 [Rx] Nitroglycerin 0.4 mg SL ASDIRECTED PRN #1 bottle 04/17/18 [Rx] Past Medical History HEENT History: Reports: Impaired Vision Cardiovascular History: Reports: Hypertension, [place] Other Cardiovascular History: stress test reveal precvious [place] Respiratory History: Reports: Sleep Apnea Genitourinary History: Reports: Renal Calculus [employer] History: Reports: None Musculoskeletal History: Reports: Gout, Osteoarthritis Neurological History: Reports: None Psychiatric History: Reports: None Endocrine/Metabolic History: Reports: Diabetes, Type II Hematologic History: Reports: None Immunologic History: Reports: None Oncologic (Cancer) History: Reports: Prostate Dermatologic History: Reports: None - Past Surgical History Head Surgeries/Procedures: Reports: None HEENT Surgical History: Reports: Oral Surgery, Tonsillectomy, Other (See Below) GI Surgical History: Reports: Bariatric Procedure, Colonoscopy Male Surgical History: Reports: Lithotripsy (ESWL), Prostate Biopsy, Prostatectomy Neurological Surgical History: Reports: None Musculoskeletal Surgical History: Reports: Carpal Tunnel, Hip Replacement Dermatological Surgical History: Reports: None Social & Family History - Family History Family Medical History: Noncontributory - Tobacco Use Smoking Status *Q: Never Smoker - Caffeine Use Caffeine Use: Reports: Soda - Recreational Drug Use Recreational Drug Use: No - Living Situation & Occupation Living situation: Reports: , with Spouse 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 Denies: Fever, Chills HEENT: Reports: No Symptoms Respiratory: Denies: Shortness of Breath, Cough Cardiovascular: Reports: Chest Pain, Lightheadedness. Denies: Edema Endocrine: Reports: No Symptoms GI/Abdominal: Reports: No Symptoms : Reports: No Symptoms Musculoskeletal: Reports: No Symptoms Skin: Reports: No Symptoms Neurological: Reports: Tingling (Upper extremity tingling and numbness in his fingers, also tingling and numbness to his lips and his face which have pretty much resolved this time) Psychiatric: Reports: No Symptoms Hematologic/Lymphatic: Reports: No Symptoms ED EXAM, GENERAL - Physical Exam Exam: See Below Exam Limited By: No Limitations General Appearance: Alert, WD/WN, No Apparent Distress Eye Exam: Bilateral Eye: Normal Inspection Ears: Normal External Exam Nose: Normal Inspection Throat/Mouth: Normal Inspection, Normal Lips, Normal Voice, No Airway Compromise Head: Normocephalic Neck: Supple Respiratory/Chest: No Respiratory Distress, Lungs Clear, Normal Breath Sounds Cardiovascular: Regular Rate, Rhythm, No Murmur GI/Abdominal: Soft Back Exam: Full Range of Motion Extremities: Normal Inspection, Normal Range of Motion, Other (He appears to have equal strength and use of his upper extremities, the left hand and the right hand appear to be equally warm at this time and the tingling he says in his fingers has resolved, he does indicate that his lips and face still have a little tingling sensation but most of it has resolved) Neurological: Alert, Oriented, CN II-XII Intact, Normal Cognition Psychiatric: Normal Affect, Normal Mood Skin Exam: Warm, Dry EKG INTERPRETATION EKG Date: 04/17/18 Time: 18:46 EKG Interpretation Comments: Shows a normal sinus rhythm, there is no acute ST elevation or T-wave changes and no ST depression noted. Course - Vital Signs Last Recorded V/S: Last Vital Signs Temp 97.7 F 04/17/18 18:45 Pulse 67 04/17/18 22:24 Resp 20 04/17/18 18:45 BP 157/97 H 04/17/18 22:24 Pulse Ox 96 04/17/18 18:45 - Orders/Labs/Meds Orders: Active Orders 24 hr Category Date Time Status EKG 12 Lead [EKG Documentation Completion] [RC] STAT Care 04/17/18 19:09 Active Peripheral IV Care [RC] . DIRECTED Care 04/17/18 19:10 Active Chest 1V Frontal [CR] Stat Exams 04/17/18 19:09 Taken Sodium Chloride 0.9% [Saline Flush] Med 04/17/18 19:10 Active 10 ml FLUSH ASDIRECTED PRN Peripheral IV Insertion Adult [OM.PC] Stat Oth 04/17/18 19:10 Ordered Medication Orders Sodium Chloride (Saline Flush) 10 ml FLUSH ASDIRECTED PRN PRN Reason: Keep Vein Open Last Admin: 04/17/18 19:20 Dose: 10 ml Labs: Laboratory Tests 04/17/18 04/17/18 04/17/18 Range/Units 18:55 18:55 21:00 WBC 6.97 (4.23-9.07) K/mm3 RBC 4.99 (4.63-6.08) M/mm3 Hgb 13.8 (13.7-17.5) gm/L Hct 41.9 (40.1-51.0) % MCV 84.0 (79.0-92.2) fl MCH 27.7 (25.7-32.2) pg MCHC 32.9 (32.2-35.5) g/dl RDW Std Deviation 42.2 (35.1-43.9) fL Plt Count 251 (163-337) K/mm3 MPV 9.2 L (9.4-12.3) fl Neut % (Auto) 60.6 (34.0-67.9) % Lymph % (Auto) 28.3 (21.8-53.1) % [place] % (Auto) 6.7 (5.3-12.2) % Eos % (Auto) 3.7 (0.8-7.0) Baso % (Auto) 0.4 (0.1-1.2) % Neut # (Auto) 4.22 (1.78-5.38) K/mm3 Lymph # (Auto) 1.97 (1.32-3.57) K/mm3 [place] # (Auto) 0.47 (0.30-0.82) K/mm3 Eos # (Auto) 0.26 (0.04-0.54) K/mm3 Baso # (Auto) 0.03 (0.01-0.08) K/mm3 Sodium 143 (136-145) mEq/L Potassium 4.1 (3.5-5.1) mEq/L Chloride 105 (98-107) mEq/L Carbon Dioxide 29 (21-32) mEq/L Anion Gap 13.1 (5-15) BUN 16 (7-18) mg/dL Creatinine 0.8 (0.7-1.3) mg/dL Est Cr Clr Drug Dosing 115.59 mL/min Estimated GFR (MDRD) > 60 (>60) mL/min BUN/Creatinine Ratio 20.0 H (14-18) Glucose 133 H (74-106) mg/dL Calcium 9.2 (8.5-10.1) mg/dL Total Bilirubin 0.5 (0.2-1.0) mg/dL AST 23 (15-37) U/L ALT 42 (16-63) U/L Alkaline Phosphatase 103 (46-116) U/L Troponin I < 0.017 < 0.017 (0.00-0.056) ng/mL Total Protein 7.1 (6.4-8.2) g/dl Albumin 3.7 (3.4-5.0) g/dl Globulin 3.4 gm/dL Albumin/Globulin Ratio 1.1 (1-2) Meds: Medications Generic Name Dose Route Start Last Admin Trade Name Freq PRN Reason Stop Dose Admin Sodium Chloride 10 ml 04/17/18 19:10 04/17/18 19:20 Saline Flush FLUSH 10 ml ASDIRECTED PRN Administration Keep Vein Open Discontinued Medications Generic Name Dose Route Start Last Admin Trade Name Vika PRN Reason Stop Dose Admin Aspirin 324 mg 04/17/18 19:10 04/17/18 19:17 Aspirin PO 04/17/18 19:11 324 mg ONETIME ONE Administration Labetalol HCl 20 mg 04/17/18 21:53 04/17/18 21:58 Normodyne IVPUSH 04/17/18 21:54 20 mg ONETIME ONE Administration Protocol Nitroglycerin 1 gm 04/17/18 19:10 04/17/18 19:17 Nitro-Bid 2% TOP 04/17/18 19:11 1 gm ONETIME ONE Administration - Radiology Interpretation Free Text/Narrative:: One view chest x-ray does not show good expansion and it slightly oblique but I do not see any acute changes at this time. - Re-Assessments/Exams Free Text/Narrative Re-Assessment/Exam: 04/17/18 20:28 Blood work does not show any acute findings, his troponin and the first blood draw was completely normal, his has a normal electrolytes as well as blood count. Did speak to the patient and his regarding the blood results. Should be noted that prior to seeing the patient they did place a Nitropatch with an inch of nitroglycerin on his chest. He was not sent home after a stress test with any sort of nitroglycerin products. He is not certain whether the nitroglycerin seemed to help with his chest tightness and his tingling and numbness or if it just naturally began to resolve since he is now sitting quietly in bed. 04/17/18 22:[address] Peterson the missile control pilot at [facility] that's patient companion. She says that since the EKG was normal and 2 sets of heart enzymes were negative and his symptoms have resolved there is nothing acute to treat at this time and he needs to follow-up on Friday with a missile control pilot here in [place]. I will provide a prescription for sublingual nitroglycerin. I spoke to the patient and his regarding this and if things worsen or 3 nitroglycerin sublingual do not take care of his symptoms if they recur that he needs to return to the ER. They both understand. Departure - Departure Time of Disposition: 22:40 Disposition: Home, Self-Care 01 Condition: Fair Clinical Impression: Chest pain, Coronary artery disease Hypertension Qualifiers: Hypertension type: unspecified Qualified Code(s): I10 - Essential (primary) hypertension Prescriptions: Nitroglycerin 0.4 mg SL ASDIRECTED PRN #1 bottle PRN Reason: Chest Pain Referrals: Santos Ac MD [Primary Care Provider] - Forms: ED Department Discharge Additional Instructions: Follow-up with the missile control pilot as scheduled on Friday for recheck, take the sublingual nitroglycerin if you develop chest pain or discomfort but be certain you sit down or lay down after taking it, to take a tablet every 5 minutes for the chest discomfort if it continues but no more than 3 times and the chest discomfort continues return to the ER, during this time before you see the missile control pilot do not take any Cialis since the Cialis and nitroglycerin combination can give you severe drop in blood pressure, return to the ER as needed
[2018-04-17] MEDS ORDERED: Labetalol 100 MG/20 ML MDV IVPUSH ONE (21:53)
--- NOTE | 2018-04-18 15:36 | CR ---
Chest: Portable view of the chest was obtained. Comparison: No prior chest x-ray. Heart size and mediastinum are within normal limits for portable technique. Lungs are clear with no acute parenchymal change. Bony structures are grossly intact. Impression: 1. Nothing acute is seen on portable chest x-ray. Diagnostic code #1
== END 2018-04-17 23:06 | disposition home or self-care (01) ==
LOC: JD.ED 18:38
DX: I25.10 Atherosclerotic heart disease of native coronary artery without angina pectoris (principal); I10 Essential (primary) hypertension; I25.2 Old myocardial infarction; E11.9 Type 2 diabetes mellitus without complications; Z79.82 Long term (current) use of aspirin; Z79.899 Other long term (current) drug therapy; Z79.84 Long term (current) use of oral hypoglycemic drugs
CPT/HCPCS: 36415; 71045; 80053; 84484; 85025; 93005; 96374; 99285; A9270; J3490; 99283